=== PATIENT | female | born 1965 | race Caucasian/White ===

== ENCOUNTER → 2024-04-09 16:00 | Outpatient (REF) | payer OTHER, SELFPAY | LOC: HWWDC 16:00 | PROVIDERS: ATTENDING PHYSICIAN Physician Assistant Medical | DX: Z12.31 Encounter for screening mammogram for malignant neoplasm of breast (principal) | CPT/HCPCS: 77063; 77067 ==

== ENCOUNTER 2024-06-07 16:17 | Emergency (ER) | payer OTHER, SELFPAY ==
[2024-06-07 16:17] VITALS: BMI 30.8
[2024-06-07 16:19] VITALS: BP 145/107
[2024-06-07 16:40] LABS: % Basophils 0.9 % (0-2); % Immature Granulocytes 0.6 % (0-0.5); % Lymphocytes 21.4 % (20.5-51.1); % Monocytes 7.9 % (1.7-9.3); % Neutrophils 62.2 % (42.2-75.2); Absolute Basophils 0.1 10^3/uL (0-0.2); Absolute Eosinophils 0.6 10^3/uL (0-0.7); Absolute Immature Granulocytes 0.1 10^3/uL (0-0.05); Absolute Lymphocytes 1.7 10^3/uL (1.2-3.4); Absolute Monocytes 0.6 10^3/uL (0.1-0.6); Hemoglobin 11.6 g/dL (12.0-16.0); Mean Corp Hgb Conc. 34.1 g/dL (33.0-37.0); Mean Corpuscular Hgb 31.1 pg (27.0-31.0); Mean Corpuscular Volume 91.2 fL (81.0-99.0); Mean Platelet Volume 9.3 fL (7.4-10.4); Nucleated Red Blood Cells % 0 %; Platelet Count 419 10^3/uL (130-400); Red Blood Cell Count 3.73 10^6/uL (4.20-5.40); Red Cell Dist. Width 13.2 % (11.5-14.5)
[2024-06-07 16:41] LABS: Urine Albumin 1+ (Neg - Trace); Urine Bilirubin Negative (Negative); Urine Character Clear (Clear); Urine Color Red; Urine Glucose Negative (Negative); Urine Ketone Negative (Negative); Urine Leukocyte 2+ (Negative); Urine Nitrite Negative (Negative); Urine Occult Blood 4+ (Negative); Urine Urobilinogen Negative (Neg - 1+); Urine pH 6.5 (5.0-9.0)
[2024-06-07 16:56] LABS: ALT (SGPT) 65 U/L (0-35); AST (SGOT) 34 U/L (14-36); Albumin 4.5 g/dl (3.5-5.0); Alkaline Phosphatase 90 U/L (38-126); Blood Urea Nitrogen 12 mg/dl (7-17); Calcium 9.9 mg/dl (8.4-10.2); Carbon Dioxide 27 mmol/L (22-30); Chloride 101 mmol/L (98-107); Glucose 103 mg/dl (70-99); Sodium 139 mmol/L (135-145); Total Bilirubin 0.5 mg/dl (0.2-1.3); eGFR > 60.00
[2024-06-07 17:10] LABS: Urine Bacteria Few (Negative); Urine Red Blood Cell 30-40 /HPF (0-2)
--- NOTE | 2024-06-07 19:44 | ED.GENMED ---
History of Present Illness
General
Chief Complaint: Catheter/Tube Problem
Time Seen by Provider: 06/07/24 18:29
History of Present Illness
History of Present Illness:
58-year-old female with history of diverticulitis status post partial colectomy 1 week ago presenting for concern of hematuria. Patient reports that her surgery was complicated after the surgeon nicked her bladder, requiring a Rojas catheter. She
reports since the surgery, she has had some scant blood in the Rojas, however today noticed an increase amount of blood. It was initially bright red, however is now dark in color. She is supposed to have a cystoscopy tomorrow, however was canceled
and is rescheduled for Tuesday. She notes some lower abdominal discomfort as well as some back pain. She is not on any blood thinners. She denies any fever. Surgery was at [facility] in [place]. She denies chest pain or difficulty breathing or
additional acute medical complaints.
Past History
Past History
ED Past Medical History: None
Patient has exhibited threatening behavior?: No
PSI?: No
Phy Exam
Physical Exam
Physical Exam:
General: Well-appearing, no clinical signs of dehydration, nontoxic and in no acute distress
HEENT: protecting airway
Neck: appears supple
CV: Normal heart rate, regular rhythm, no evidence of cyanosis
Resp: No accessory muscle use, no increased work of breathing, lungs clear to auscultation bilaterally
Abd: Soft and non-distended, mild generalized tenderness to the lower abdomen without rebound or guarding. Surgical incisions are clean/dry/intact, healing appropriately without erythema or warmth. No active drainage.
Extremities: No deformities, no swelling, no erythema
Neuro: alert, no focal neurologic deficit
: deferred
Rectal: deferred
Psych: Normal affect
Skin: Intact
Course
Orders/Labs/Results
Orders:
Orders
06/07/24 16:28
CBC/With Diff [Complete Blood Count/With Diff] Urgent
CMP [Comprehensive Metabolic Panel] Urgent
Urinalysis Reflex To Culture Urgent
Date Specimen was Collected: 06/07/24
Time Specimen was Collected: 16:23
Urine Microscopic Reflex Cult Urgent
Urine Culture Urgent
KRYSTIN Source: U
Specimen Description:
Date Specimen was Collected: 06/07/24
Time Specimen was Collected: 16:23
06/07/24 19:26
CT Abd/pelvis W Iv Cont Urgent
Comment:
Reason For Exam: lower abdominal pain, indwelling rojas
06/07/24 22:07
Cefepime HCl [Maxipime] 2,000 mg IV NOW STA
Abnormal Lab Results
06/07/24
16:28
RBC 3.73 L 10^6/uL
(4.20-5.40)
Hgb 11.6 L g/dL
(12.0-16.0)
Hct 34.0 L %
(37.0-47.0)
MCH 31.1 H pg
(27.0-31.0)
Plt Count 419 H 10^3/uL
(130-400)
Abs Immat Gran (auto) 0.1 H 10^3/uL
(0-0.05)
Immature Gran % 0.6 H %
(0-0.5)
Eosinophils % 7.0 H %
(0-6)
Glucose 103 H mg/dl
(70-99)
ALT 65 H U/L
(0-35)
Ur Occult Blood Reflex 4+ A
(Negative)
Leukocyte Esterase Rfl 2+ A
(Negative)
Urine RBC 30-40 A /HPF
(0-2)
Urine WBC (Reflex) 11-15 A /HPF
(0-5)
Urine Bacteria (Reflex) Few A
(Negative)
Urine Albumin (Reflex) 1+ A
(Neg - Trace)
06/07/24 16:28
06/07/24 16:28
Vital Signs
Initial and Last Documented VS:
Initial Vital Signs
Temp Pulse Resp BP Pulse Ox
97.8 F 95 18 145/107 97
06/07/24 16:19 06/07/24 16:19 06/07/24 16:19 06/07/24 16:19 06/07/24 16:19
Last Documented Vital Signs
Temp Pulse Resp BP Pulse Ox
97.8 F 95 18 122/76 97
06/07/24 16:19 06/07/24 16:19 06/07/24 16:19 06/07/24 21:44 06/07/24 16:19
MDM/Problems Addressed
MDM/Problems Addressed:
58-year-old female with history of diverticulitis status post partial colectomy 1 week ago complicated by nicking of the bowel indwelling Rojas catheter presenting for hematuria. Vital signs on arrival are normal.
On exam, patient is well-appearing, nontoxic. Patient does have a leg bag in place. Urine is rust in color, no genesis hematuria. It is draining appropriately. She notes that she just emptied it, and bag is nearly full. Suspect UTI versus bladder
irritation, however she does have some generalized tenderness to the lower abdomen. Given recent surgical intervention, will obtain CT imaging. Laboratory analysis obtained, no leukocytosis. Urine does show some leukocytes as well as RBCs.
Hemoglobin within normal limits without concern for any significant bleeding.
22:00 -CT shows severe inflammatory changes adjacent to the anterior aspect of the bladder with small amount of adjacent fluid, no extraluminal gas although per urology, difficult to rule out component of extraperitoneal bladder rupture. In
discussion with urology, note that these are not unusual findings after bladder injury from surgery. Urology notes that if catheter is draining well and hematuria is resolving, can be discharged with outpatient follow-up for planned cystogram. On
reassessment, patient remains hemodynamically stable. Catheter continues to drain appropriately, continued improvement in hematuria, yellow/brown in color. There is some signs of infection to the urine, so will start on antibiotics in the setting
of potential cystitis component. Cefepime administered in the emergency department. Otherwise feel patient is stable for discharge with close interval follow-up with her urologist and cystogram as scheduled on Tuesday. Strict return precautions
were communicated to patient and patient verbalized understanding
*Critical Care Note
Total Time (30-74mins, 75-104mins- exclusive of procedures): Not Applicable
ED Attending Note
-
Portions of this chart may have been created with voice recognition software.� Occasional wrong word or��sound alike� substitutions may have occurred due to the inherent limitations of voice recognition software.
Discharge Plan
Departure
Prescriptions:
No Action
hydrocodone-acetaminophen 1 TABLET tablet
1 - 2 tab PO Q4HPRN PRN (Reason: moderate to severe pain) Qty: 15 0RF
ciprofloxacin HCl [Cipro] 500 mg tablet
500 mg PO BID Qty: 19 0RF
metronidazole 500 mg tablet
500 mg PO Q8H Qty: 29 0RF
Referrals:
NONE,* [Active] -
Discharge Date and Time
Print Language: LITHUANIAN
[2024-06-07 21:44] VITALS: BP 122/76
[2024-06-07] MEDS: MAXIPIME 2000 MG IV (22:15)
== END 2024-06-07 22:30 | disposition home or self-care (01) ==
LOC: EMR 16:17
PROVIDERS: Emergency Medicine; EMERGENCY PHYSICIAN Student in an Organized Health Care Education/Training Program; FAMILY PHYSICIAN Physician Assistant Medical
DX: R31.9 Hematuria, unspecified (principal); R10.30 Lower abdominal pain, unspecified; M54.9 Dorsalgia, unspecified; K57.92 Diverticulitis of intestine, part unspecified, without perforation or abscess without bleeding; Z98.890 Other specified postprocedural states; Z98.0 Intestinal bypass and anastomosis status; Z91.018 Allergy to other foods; Z91.048 Other nonmedicinal substance allergy status
CPT/HCPCS: 99284; 96374; 74177; 80053; 81003; 81015; 85025; 87077; 87086; 87186; Q9967

== ENCOUNTER → 2024-06-11 12:56 | Outpatient (REF) | payer OTHER, SELFPAY | LOC: RAD 12:56 | PROVIDERS: ATTENDING PHYSICIAN Physician Assistant; FAMILY PHYSICIAN Physician Assistant Medical | DX: S37.20XS Unspecified injury of bladder, sequela (principal) | CPT/HCPCS: 51600; 74430; Q9967 ==

== ENCOUNTER 2024-06-13 12:47 | Inpatient (IN) | payer OTHER, SELFPAY ==
[2024-06-13] VITALS (12 sets, daily range): BP systolic 113–160; BP diastolic 32–94; BMI 27.3; BMI 29.1
[2024-06-13 05:22] LABS: % Basophils 0.6 % (0-2); % Eosinophils 0.1 % (0-6); % Lymphocytes 3.7 % (20.5-51.1); % Monocytes 5.5 % (1.7-9.3); % Neutrophils 89.1 % (42.2-75.2); Absolute Basophils 0.1 10^3/uL (0-0.2); Absolute Immature Granulocytes 0.2 10^3/uL (0-0.05); Absolute Lymphocytes 0.6 10^3/uL (1.2-3.4); Absolute Monocytes 0.9 10^3/uL (0.1-0.6); Absolute Neutrophils 14.1 10^3/uL (1.4-6.5); Hematocrit 32.1 % (37.0-47.0); Hemoglobin 11.4 g/dL (12.0-16.0); Mean Corp Hgb Conc. 35.5 g/dL (33.0-37.0); Mean Corpuscular Volume 87.2 fL (81.0-99.0); Mean Platelet Volume 9.3 fL (7.4-10.4); Nucleated Red Blood Cells % 0 %; Platelet Count 374 10^3/uL (130-400); Red Blood Cell Count 3.68 10^6/uL (4.20-5.40); Red Cell Dist. Width 12.8 % (11.5-14.5); White Blood Cell Count 15.9 10^3/uL (4.8-10.8)
[2024-06-13 05:38] LABS: ALT (SGPT) 22 U/L (0-35); AST (SGOT) 20 U/L (14-36); Albumin 4.1 g/dl (3.5-5.0); Alkaline Phosphatase 85 U/L (38-126); Blood Urea Nitrogen 9 mg/dl (7-17); Calcium 9.7 mg/dl (8.4-10.2); Carbon Dioxide 21 mmol/L (22-30); Chloride 102 mmol/L (98-107); Glucose 142 mg/dl (70-99); Sodium 137 mmol/L (135-145); Total Bilirubin 0.8 mg/dl (0.2-1.3); Total Protein 6.7 g/dl (6.3-8.2); eGFR > 60.00
[2024-06-13 06:44] LABS: Urine Albumin 1+ (Neg - Trace); Urine Bilirubin Negative (Negative); Urine Character Clear (Clear); Urine Color Yellow; Urine Glucose Negative (Negative); Urine Ketone 2+ (Negative); Urine Leukocyte Negative (Negative); Urine Nitrite Negative (Negative); Urine Occult Blood Negative (Negative); Urine Urobilinogen Negative (Neg - 1+)
[2024-06-13] MEDS: TYLENOL 1000 MG PO (06:55)
[2024-06-13] MEDS: TORADOL 15 MG IV (06:56)
[2024-06-13] MEDS: ZOFRAN 4 MG IV (06:56)
[2024-06-13 06:57] LABS: Urine Bacteria Few (Negative)
[2024-06-13] MEDS: NSS 1000 IV ×2 (06:57→15:54)
[2024-06-13 07:40] LABS: COVID-19 Antigen Negative (Negative)
[2024-06-13 09:19] LABS: Procalcitonin 0.81 ng/ml (0.0-0.25)
[2024-06-13 09:47] LABS: Lactic Acid 0.7 mmol/L (0.7-2.0)
--- NOTE | 2024-06-13 10:45 | ED.GENMED ---
History of Present Illness
General
Chief Complaint: Generalized Pain
Source: patient and records
Exam Limitations: none
Time Seen by Provider: 06/13/24 06:33
Nursing documentation reviewed up to this point in time: agreed with
History of Present Illness
History of Present Illness:
Patient is a 58-year-old female who feels generally bad. Patient states it feels like her skin and had her on fire. Patient is nauseous with vomiting but no diarrhea or constipation. Patient has lower abdominal tenderness. Patient had a CT scan
6 days ago which showed inflammation around the bladder but no organized collection of fluid. Patient has fever and chills. Patient has diminished appetite. Patient has nasal congestion without sore throat or cough. Patient had a colon resection
for diverticulitis and during the surgery they nicked the bladder. Patient subsequently ended up with a Vazquez catheter which was removed yesterday. Patient was seen here 6 days ago and placed on Cipro because of UTI which turned out to be
Pseudomonas which was sensitive to Cipro. However patient for the past 24 hours has developed the above symptoms. This occurred generally prior to having the Vazquez removed.
Past History
Past History
ED Past Medical History: HTN and Other (Diverticulitis)
ED Past Surgical History: Bowel resection
Patient has exhibited threatening behavior?: No
PSI?: No
Social History
Tobacco: Former smoker
Review of Systems
Review of Systems
All Other Systems: ROS reviewed and negative except as documented in HPI and ROS
Constitutional: Reports fever, fatigue and chills
EENT: Reports runny nose; Denies sore throat
Respiratory: Denies cough or trouble breathing
Cardiac: Reports no symptoms
ABD/GI: Reports abdominal pain
: Reports bleeding; Denies dysuria, flank pain or discharge
Musculoskeletal: Denies back pain
Skin: Reports no symptoms
Neurological: Reports no symptoms
Hematologic/Lymphatic: Reports no symptoms
Psychiatric: Reports no symptoms
Phy Exam
Physical Exam
Physical Exam:
Physical Exam
General: moderate distress, alert and appropriate, well nourished, dry mucous membranes
HENT: Normocephalic, supple with no lymphadenopathy, no thyromegaly
Eyes: Clear sclera, conjuctiva without injection
Heart: Regular rhythm and rate. No S3, S4. No murmur. No NVD
Lungs: No respiratory distress, no stridor, lung sounds clear and equal bilaterally
Abdomen: Soft, diffuse mild to moderate lower abdominal tenderness without guarding or rebound, no organomegaly, no CVA tenderness, BS good
Neuro: Alert and oriented x 3, CN II - XII intact, no motor focality
Skin: no rash
Psychiatric: well kept. interactive and cooperative
Extremities: No edema, cyanosis, tenderness, Good and equal peripheral pulses.
Course
Orders/Labs/Results
Orders:
Orders
06/13/24 05:13
CMP [Comprehensive Metabolic Panel] Urgent
Complete Blood Count/With Diff Urgent
06/13/24 06:24
Urinalysis Reflex To Culture Urgent
Date Specimen was Collected: 06/13/24
Time Specimen was Collected: 06:22
Urine Microscopic Reflex Cult Urgent
06/13/24 06:45
0.9% Sodium Chloride 1000 ml [Nss] 1,000 ml IV BOLUS
Acetaminophen [Tylenol] 1,000 mg PO NOW STA
Ketorolac [Toradol] 15 mg IV NOW STA
Ondansetron Injectable [Zofran] 4 mg IV NOW STA
06/13/24 07:14
COVID-19 Antigen Urgent
Source: Nasal Swab
06/13/24 08:42
Lactic Acid Q4H
Comment: CANCEL 2nd LACTIC ACID IF 1st LACTIC ACID IS LESS THAN 2
Procalcitonin Urgent
PCT Algorithmm Indication: Sepsis
Blood Culture Urgent
KRYSTIN Source: Blood/Venous
Specimen Description:
06/13/24 08:50
Blood Culture Routine
KRYSTIN Source: Blood/Venous
Specimen Description:
06/13/24 12:30
Lactic Acid Q4H
Comment: CANCEL 2nd LACTIC ACID IF 1st LACTIC ACID IS LESS THAN 2
Abnormal Lab Results
06/13/24 06/13/24 06/13/24
05:13 06:24 08:42
WBC 15.9 H 10^3/uL
(4.8-10.8)
RBC 3.68 L 10^6/uL
(4.20-5.40)
Hgb 11.4 L g/dL
(12.0-16.0)
Hct 32.1 L %
(37.0-47.0)
Abs Immat Gran (auto) 0.2 H 10^3/uL
(0-0.05)
Absolute Neuts (auto) 14.1 H 10^3/uL
(1.4-6.5)
Absolute Lymphs (auto) 0.6 L 10^3/uL
(1.2-3.4)
Absolute Monos (auto) 0.9 H 10^3/uL
(0.1-0.6)
Immature Gran % 1.0 H %
(0-0.5)
Neutrophils % 89.1 H %
(42.2-75.2)
Lymphocytes % 3.7 L %
(20.5-51.1)
Carbon Dioxide 21 L mmol/L
(22-30)
Glucose 142 H mg/dl
(70-99)
Procalcitonin 0.81 H ng/ml
(0.0-0.25)
Urine Ketones 2+ A
(Negative)
Urine RBC 3-6 A /HPF
(0-2)
Urine Bacteria (Reflex) Few A
(Negative)
Urine Albumin (Reflex) 1+ A
(Neg - Trace)
06/13/24 05:13
06/13/24 05:13
Vital Signs
Initial and Last Documented VS:
Initial Vital Signs
BP
155/89
06/13/24 04:51
Last Documented Vital Signs
Temp Pulse Resp BP Pulse Ox
100.8 F H 85 16 160/32 98
06/13/24 04:57 06/13/24 09:02 06/13/24 09:59 06/13/24 09:02 06/13/24 09:59
*Radiology
Radiology exam reviewed: other (Reviewed the CT from 6 days ago)
*Pulse Oximetry
Patient hypoxic: no
*EKG
Interpreted by ED Provider?: NA
*Plastic Dolls Mold Filler Interpretation
Rate: normal
Interpretation: normal
Heart Rate: 90
Rhythm: sinus
*Critical Care Note
Total Time (30-74mins, 75-104mins- exclusive of procedures): Not Applicable
Update Note
Update Note:
Patient urine looks good. Patient is tender throughout the lower abdomen. CT scan showed large amount inflammation about the bladder. Patient be started on antibiotics. Fortunately patient's lactate is normal but the procalcitonin is elevated.
ED Attending Note
-
Portions of this chart may have been created with voice recognition software.� Occasional wrong word or��sound alike� substitutions may have occurred due to the inherent limitations of voice recognition software.
Discharge Plan
Departure
Patient Disposition: Admit
Date of Disposition: 06/13/24
Time of Disposition: 10:56
Admit to: Telemetry
Admit to doctor: Hospitalist
Presentation/result/management discussed w/ accepting MD/DO: Hospitalist
Patient with high blood pressure during this ER visit?: Yes
Condition: Serious
Covid-19: Negative COVID-19
Discharge Problem:
Fever, Sepsis
Prescriptions:
No Action
cephalexin 500 mg capsule
500 mg PO Q12H 10 Days Qty: 20 0RF
lisinopril 10 mg tablet
10 mg PO DAILY
magnesium oxide 500 mg magnesium Tablet
500 mg PO DAILY
duloxetine 30 mg capsule,delayed release(DR/EC)
30 mg PO DAILY
cholecalciferol (vitamin D3) 50 mcg (2,000 unit) Tablet
50 mcg PO DAILY
Fiber Gummies 2 gram Tablet,Chewable
2 g PO DAILY
Collagen Skin Renewal 30-833.3 mg Tablet
1 tab PO DAILY
acetaminophen [Tylenol] 325 mg Tablet
650 mg PO Q6HPRN PRN (Reason: mild pain)
Referrals:
Sheree Thomas PA-C [Family Provider] -
Interventions
Interventions:
*Risk Screen - Suicide Last Done: 06/13/24 05:05
*General Assessment Last Done: 06/13/24 05:01
*Neglect/Abuse Screening Last Done: 06/13/24 05:02
ED- Fall Risk Assessment Last Done: 06/13/24 05:05
*ED COVID-19 Vaccine History Last Done: 06/13/24 05:04
Discharge Date and Time
Print Language: JAPANESE
[2024-06-13] MEDS: ZOSYN 100 IV (11:03)
[2024-06-13] MEDS: VANCOCIN 540 MG IV (11:51)
--- NOTE | 2024-06-13 12:35 | HPS.HSE ---
Family Physician
-
Family Physician: Sheree Thomas
Chief Complaint
-
Fever
History of Present Illness
Patient is 58 years old female with history of recent complicated diverticular episode status post colectomy and a bladder complication and she had a Vazquez catheter in place, hypertension, depression, came into the hospital with abdominal discomfort
nausea vomiting. Patient had some symptoms in the last few days and was diagnosed with possible UTI and she was sent on ciprofloxacin. Patient went to [facility] yesterday and had her Vazquez catheter taken out. Patient had persistent symptoms of
nausea vomiting abdominal discomfort in the lower abdomen associated with fever and chills. She has dysuria urgency and frequency and urinary incontinence. Fever Tmax 102.3 Fahrenheit, tachycardia in the 100s, tachypneic, leukocytosis with WBC
close to 16,000 and neutrophils 89%, lactate 0.7. She does have a outpatient urine culture from 06/07 growing Pseudomonas aeruginosa. She was referred to hospitalist for further evaluation.
Medical History
Past Medical History
Past Medical History: Reports Other (Diverticulitis status post colectomy, hypertension, depression, urinary retention and surgical damage with Vazquez catheter in place just recently removed.)
Past Surgical History: Reports Other (Colectomy.)
Social History
Tobacco: Former Smoker
Alcohol: Daily (She has not drank any alcohol for over 2 weeks and no signs of withdrawal.)
Drug: None
Family History
Family History: Not pertinent
Allergies / Home Medications
Allergies reflects when Allergies were last updated in [facility].
Home Medications with original date entered in [facility]
Allergy/Medication List:
Allergies
Allergy/AdvReac Type Severity Reaction Status Date / Time
apple Allergy Swelling, Verified 06/07/24 16:23
Itching
Environmental Allergy sneezing, Uncoded 06/07/24 16:23
itching
Home Medications
ascorbic acid 30 mg-collagen, hydrolyzed 833.3 mg tablet (Collagen Skin Renewal) 1 tab PO DAILY Supplement 06/07/24
cholecalciferol (vitamin D3) 50 mcg (2,000 unit) tablet 50 mcg PO DAILY Supplement 06/07/24
duloxetine 30 mg capsule,delayed release 30 mg PO DAILY Mental Health 06/07/24
inulin 2 gram chewable tablet (Fiber Gummies) 2 g PO DAILY Gastrointestinal Issue 06/07/24
lisinopril 10 mg tablet 10 mg PO DAILY Blood Pressure 06/07/24
magnesium oxide 500 mg PO DAILY Supplement 06/07/24
acetaminophen 325 mg tablet (Tylenol) 650 mg PO Q6HPRN PRN mild pain 06/13/24
cephalexin 500 mg capsule 500 mg PO Q12H Infection 06/13/24
Review of Systems
-
A 12 point ROS was completed and negative except as noted: Yes
Physical Exam
Vital Signs
Vital Signs
Temp Pulse Resp BP Pulse Ox
98.7 F 92 20 122/72 98
06/13/24 11:56 06/13/24 11:08 06/13/24 11:08 06/13/24 11:08 06/13/24 09:59
Physical exam:
General: Acutely ill. Mild toxic appearance.
HEENT: Normocephalic, Atraumatic and Dry Mucous Membranes
Respiratory: Clear to Auscultation; Negative Wheezes, Rales or Rhonchi
Cardiac: Regular Rhythm tachycardic and S1/S2
GI: Soft, Tender and Nondistended
Musculoskeletal: No Clubbing, No Cyanosis and No Edema
Neuro: Awake, Alert and Oriented
Psych: Calm
Physical Exam
General: Other
Laboratory Results
-
06/13/24 05:13
06/13/24 05:13
Laboratory Results
Lactic Acid 0.7 mmol/L (0.7-2.0) 06/13/24 08:42
Total Bilirubin 0.8 mg/dl (0.2-1.3) 06/13/24 05:13
AST 20 U/L (14-36) 06/13/24 05:13
ALT 22 U/L (0-35) 06/13/24 05:13
Alkaline Phosphatase 85 U/L (38-126) 06/13/24 05:13
Data Reviewed
-
Lab Data: Labs Reviewed by me
Impression/Plan
-
IMPRESSION:
Patient is 58 years old female came into the hospital with fever, leukocytosis, and sepsis picture likely related to catheter associated urinary tract infection. Patient at risk for increased morbidity mortality due to active infection and
comorbidities therefore she will need to be treated at hospital and monitor accordingly.
PLAN:
Sepsis due to CAUTI:
Patient with fever, temperature 102.3 �F, tachycardic heart rates in 100s, tachypnea respiratory 17, leukocytosis WBC 15.9 and source urine
Given urine culture recent Pseudomonas we will continue targeting this organism.
IV cefepime
Repeat urine culture but could not be helpful since partially treated
Follow-up rest of cultures
IV fluid
Bladder scan protocol for retention
Seen and reviewed recent CT scan of the abdomen on 06/07 and cystogram on 06/11-no need to repeat unless clinical status worsens
Urology consult-Deland texted urology today.
Hypertension:
Resume antihypertensives tomorrow
Monitor blood pressure adjust medications accordingly
Depression:
Continue antidepressant duloxetine
DVT prophylaxis-Lovenox
CODE STATUS-full code
Time spent 75 minutes
[2024-06-13] MEDS: TYLENOL 650 MG PO ×2 (14:26→18:15)
[2024-06-13] MEDS: CYMBALTA DELAYED RELEASE 30 MG PO (15:54)
[2024-06-13] MEDS: MAGNESIUM OXIDE 500 MG PO (15:54)
[2024-06-13] MEDS: LOVENOX 40 MG SC (18:15)
[2024-06-13] MEDS: MAXIPIME 1000 MG IV (18:15)
[2024-06-13] MEDS: STERILE WATER FOR INJECTION 10 ML IV (18:16)
[2024-06-13] MEDS: TORADOL 10 MG IV (20:39)
[2024-06-13] MEDS: NSS IV (22:38)
[2024-06-14] MEDS: NSS 1000 IV ×3 (02:23→22:17)
[2024-06-14] MEDS: ZOFRAN 4 MG IV ×2 (02:24→17:12)
[2024-06-14] MEDS: TORADOL 10 MG IV ×2 (03:02→19:35)
[2024-06-14 03:39] LABS: Urine Albumin Trace (Neg - Trace); Urine Bilirubin Negative (Negative); Urine Character Slightly Cloudy (Clear); Urine Color Yellow; Urine Glucose Negative (Negative); Urine Ketone Trace (Negative); Urine Leukocyte Negative (Negative); Urine Nitrite Negative (Negative); Urine Occult Blood Negative (Negative); Urine Specific Gravity 1.015 (<1.030); Urine Urobilinogen Negative (Neg - 1+)
[2024-06-14] MEDS: MAXIPIME 1000 MG IV ×2 (05:39→17:06)
[2024-06-14] MEDS: STERILE WATER FOR INJECTION 10 ML IV ×2 (05:40→17:06)
[2024-06-14 07:21] LABS: Blood Urea Nitrogen 11 mg/dl (7-17); Calcium 8.6 mg/dl (8.4-10.2); Carbon Dioxide 20 mmol/L (22-30); Chloride 107 mmol/L (98-107); Estimated Creatinine Clearance 72 ml/min; Glucose 109 mg/dl (70-99); Sodium 138 mmol/L (135-145); eGFR > 60.00
[2024-06-14 07:25] VITALS: BP 118/67
[2024-06-14 07:37] LABS: % Basophils 0.5 % (0-2); % Eosinophils 4.8 % (0-6); % Immature Granulocytes 1.1 % (0-0.5); % Lymphocytes 6.3 % (20.5-51.1); % Monocytes 6.3 % (1.7-9.3); Absolute Eosinophils 0.3 10^3/uL (0-0.7); Absolute Immature Granulocytes 0.1 10^3/uL (0-0.05); Absolute Lymphocytes 0.4 10^3/uL (1.2-3.4); Absolute Monocytes 0.4 10^3/uL (0.1-0.6); Absolute Neutrophils 5.3 10^3/uL (1.4-6.5); Hemoglobin 10.4 g/dL (12.0-16.0); Mean Corp Hgb Conc. 34.7 g/dL (33.0-37.0); Mean Corpuscular Hgb 32.1 pg (27.0-31.0); Mean Corpuscular Volume 92.6 fL (81.0-99.0); Nucleated Red Blood Cells % 0 %; Platelet Count 267 10^3/uL (130-400); Red Blood Cell Count 3.24 10^6/uL (4.20-5.40); Red Cell Dist. Width 12.8 % (11.5-14.5); White Blood Cell Count 6.5 10^3/uL (4.8-10.8)
--- NOTE | 2024-06-14 08:41 | W.PN.HOSP.TC ---
Today's Communication/Plan
-
Continue IV antibiotics. IV fluids.
Assessment / Plan
Assessment / Plan
Physical exam:
General: Well Developed, Well Nourished and No Apparent Distress
HEENT: Normocephalic, Atraumatic and Moist Mucous Membranes
Respiratory: Clear to Auscultation; Negative Wheezes, Rales or Rhonchi
Cardiac: Regular Rhythm and S1/S2
GI: Soft, Nontender and Nondistended
Musculoskeletal: No Clubbing, No Cyanosis and No Edema
Neuro: Awake, Alert and Oriented
Psych: Calm
A/P:
Sepsis due to CAUTI:
Patient with fever, temperature 102.3 �F, tachycardic heart rates in 100s, tachypnea respiratory 17, leukocytosis WBC 15.9 and source urine
Given urine culture recent Pseudomonas we will continue targeting this organism.
IV cefepime
Repeat urine culture but could not be helpful since partially treated
Follow-up rest of cultures
IV fluid but decrease rate.
Bladder scan protocol for retention
Seen and reviewed recent CT scan of the abdomen on 06/07 and cystogram on 06/11-no need to repeat unless clinical status worsens
Urology consulted
WBC 15.9--> 6.5 today
PT eval
Hypertension:
Resume antihypertensives today
Monitor blood pressure adjust medications accordingly
Anemia:
Hemoglobin 10.4 today
No signs of bleeding but mild drift overall due to dilutional effect
Depression:
Continue antidepressant duloxetine
DVT prophylaxis-Lovenox
CODE STATUS-full code
Anticipated Discharge: > 48 hours
Subjective/Interval History
-
Date of Service: June 14, 2024
Patient still has urinary symptoms and generalized malaise today. Fever is coming down today. Decreased appetite.
Objective Data
-
Labs:
Laboratory Results
06/14/24
05:40
WBC 6.5
Hgb 10.4 L
Hct 30.0 L
Plt Count 267 D
Sodium 138
Potassium 4.0
Chloride 107
Carbon Dioxide 20 L
BUN 11
Creatinine 0.8
Glucose 109 H
Calcium 8.6
Vital Signs:
Vital Signs
Temp Pulse Resp BP Pulse Ox
98.3 F 74 16 118/67 99
06/14/24 07:25 06/14/24 07:25 06/14/24 07:25 06/14/24 07:25 06/14/24 07:25
I&O
06/13/24 06/14/24 06/15/24
06:59 06:59 06:59
Intake Total 1620 / 1620
Balance 1620 / 1620
[2024-06-14] MEDS: MAGNESIUM OXIDE 500 MG PO (09:16)
[2024-06-14] MEDS: CYMBALTA DELAYED RELEASE 30 MG PO (09:16)
[2024-06-14] MEDS: ZESTRIL 10 MG PO (09:16)
--- NOTE | 2024-06-14 12:17 | CM ---
Pt admitted for Sepsis due to CAUTI, HTN, anemia, h/o depression
Met with pt at bedside
Pt reports she lives alone in an apartment, no steps to enter
Independent, retired, drives
DME - none
SNF/HH - no past hx
Has ride at discharge
PCP - Sheree AKERS - [facility]
Pharm - [facility]
Plan - anticipate home no needs
[2024-06-14 15:22] VITALS: BP 126/63
[2024-06-14] MEDS: LOVENOX 40 MG SC (17:06)
--- NOTE | 2024-06-14 17:20 | W.PN.URO.CBU ---
Today's Communication / Plan
-
Patient requires no urologic intervention at this time
Her voiding dysfunction is expected to continue to improve
Right-sided reflux will likely resolve
Assessment / Plan
-
2 weeks s/p intraoperative bladder injury and cystorrhaphy
Pseudomonas UTI
Urine urgency and frequency: improving
Right vesicoureteral reflux: likely secondary to post-surgical changes or UTI
Diagnosis
-
Date of Service: June 14, 2024
-
Patient Diagnosis:
Roughly 2 weeks s/p laparoscopic partial colectomy at [facility] complicated by bladder injury requiring intraoperative repair
Patient had her cystogram at this hospital 06/11/24 (images personally reviewed) demonstrating grade 4 right sided vesicoureteral reflux and the absence of urine extravasation from the bladder
She had her Vazquez catheter removed 06/12/24 at her urologist's office
She has a hidalgo-sensitive pseudomonas UTI diagnosed here last week currently being treated
---
She presented here yesterday with worsening abdominal pain and fever
She has slowly improving urine urgency and urge incontinence
No dysuria
No gross hematuria
No right CVAT
Subjective
-
Urine urgency and urge incontinence
Objective
-
Vital Signs
Temp Pulse Resp BP Pulse Ox
98.3 F 81 16 126/63 95
06/14/24 15:22 06/14/24 15:22 06/14/24 15:22 06/14/24 15:22 06/14/24 15:22
Intake and Output
06/13/24 06/14/24 06/15/24
06:59 06:59 06:59
Intake Total 1620 / 1620
Balance 1620 / 1620
Intake:
Oral fluids 1620 / 1620
Other:
Number of approximated SMALL 7
amounts of urine
Number of approximated LARGE 2
amounts of urine
Laboratory Results
06/14/24 05:40
06/14/24 05:40
06/11/24 cystogram personally reviewed
Review of Systems
-
Constitutional: Fatigue
Respiratory: No Symptoms
Cardiac: No Symptoms
Abdomen/GI: Abdominal Pain
: Frequency, Incontinence and Urgency
Neurological: No Symptoms
Physical Exam
-
General - no acute distress
Abdomen - soft, non-tender, no CVAT
Counseling
-
Will re-evaluate if clinical condition warrants
Patient is encouraged to follow up with her treating urologist as scheduled
[2024-06-14] MEDS: COMPAZINE 10 MG IV (19:58)
[2024-06-14 23:06] VITALS: BP 119/72
[2024-06-15] MEDS: MAXIPIME 1000 MG IV ×2 (05:20→17:08)
[2024-06-15] MEDS: STERILE WATER FOR INJECTION 10 ML IV ×2 (05:21→17:08)
[2024-06-15 07:20] VITALS: BP 149/93
[2024-06-15] MEDS: NSS 1000 IV (08:01)
[2024-06-15] MEDS: ZESTRIL 10 MG PO (08:02)
[2024-06-15] MEDS: CYMBALTA DELAYED RELEASE 30 MG PO (08:02)
[2024-06-15] MEDS: MAGNESIUM OXIDE 500 MG PO (08:02)
--- NOTE | 2024-06-15 09:32 | W.PN.HOSP.TC ---
Today's Communication/Plan
-
IV antibiotics. CT scan of the abdomen and pelvis
Assessment / Plan
Assessment / Plan
Physical exam:
General: Well Developed, Well Nourished and No Apparent Distress
HEENT: Normocephalic, Atraumatic and Moist Mucous Membranes
Respiratory: Clear to Auscultation; Negative Wheezes, Rales or Rhonchi
Cardiac: Regular Rhythm and S1/S2
GI: Soft, mild tender and Nondistended
Musculoskeletal: No Clubbing, No Cyanosis and No Edema
Neuro: Awake, Alert and Oriented
Psych: Calm
A/P:
Sepsis due to CAUTI:
Improving
Despite her improvement, patient is very concerned about colonic issues postop so she was a CT scan of the abdomen. Not likely did not find anything major but is not unreasonable given her recent surgery.
Plan for CT scan of abdomen pelvis today
Continue current antibiotics, IV cefepime
Prior to today:
Patient with fever, temperature 102.3 �F, tachycardic heart rates in 100s, tachypnea respiratory 17, leukocytosis WBC 15.9 and source urine
Given urine culture recent Pseudomonas we will continue targeting this organism.
IV cefepime
Repeat urine culture but could not be helpful since partially treated
Follow-up rest of cultures
IV fluid but decrease rate.
Bladder scan protocol for retention
Seen and reviewed recent CT scan of the abdomen on 06/07 and cystogram on 06/11-no need to repeat unless clinical status worsens
Urology consulted
WBC 15.9--> 6.5 today
PT eval
Hypertension:
Continue antihypertensives
Monitor blood pressure adjust medications accordingly
Anemia:
Hemoglobin 10.4 last time checked
No signs of bleeding but mild drift overall due to dilutional effect
Will repeat in a.m.
Depression:
Continue antidepressant duloxetine
DVT prophylaxis-Lovenox
CODE STATUS-full code
Anticipated Discharge: 24 - 48 hours
Subjective/Interval History
-
Date of Service: June 15, 2024
Patient feels better overall today. No nausea or vomiting. Abdominal discomfort improving. Afebrile
Objective Data
-
Vital Signs:
Vital Signs
Temp Pulse Resp BP Pulse Ox
97.9 F 78 17 148/93 98
06/15/24 07:20 06/15/24 08:02 06/15/24 07:20 06/15/24 08:02 06/15/24 08:10
I&O
06/14/24 06/15/24 06/16/24
06:59 06:59 06:59
Intake Total 1620 / 1620 1140 / 1140
Balance 1620 / 1620 1140 / 1140
--- NOTE | 2024-06-15 13:04 | W.PN.URO.CBU ---
Today's Communication / Plan
-
please do bladder scan pos t void call urology if greater than 101cc
Assessment / Plan
-
2 weeks s/p intraoperative bladder injury and cystorrhaphy
Pseudomonas UTI
Urine urgency and frequency: improving
Right vesicoureteral reflux: likely secondary to post-surgical changes or UTI
Diagnosis
-
Date of Service: June 15, 2024
-
Patient Diagnosis:
Post Op Day:
Patient Diagnosis:
Roughly 2 weeks s/p laparoscopic partial colectomy at [facility] complicated by bladder injury requiring intraoperative repair
Patient had her cystogram at this hospital 06/11/24 (images personally reviewed) demonstrating grade 4 right sided vesicoureteral reflux and the absence of urine extravasation from the bladder
She had her Vazquez catheter removed 06/12/24 at her urologist's office
She has a hidalgo-sensitive pseudomonas UTI diagnosed here last week currently being treated
---
She presented here yesterday with worsening abdominal pain and fever
She has slowly improving urine urgency and urge incontinence
No dysuria
No gross hematuria
No right CVAT
Subjective
-
sill frequency no fevr chllls feels like emptying
Objective
-
Vital Signs
Temp Pulse Resp BP Pulse Ox
97.9 F 78 17 148/93 98
06/15/24 07:20 06/15/24 08:02 06/15/24 07:20 06/15/24 08:02 06/15/24 08:10
Intake and Output
06/14/24 06/15/24 06/16/24
06:59 06:59 06:59
Intake Total 1620 / 1620 1140 / 1140
Balance 1620 / 1620 1140 / 1140
Intake:
Oral fluids 1620 / 1620 1140 / 1140
Other:
Number of approximated SMALL 7
amounts of urine
Number of approximated LARGE 2 3
amounts of urine
Laboratory Results
06/14/24 05:40
06/14/24 05:40
Review of Systems
-
: Frequency and Urgency
Physical Exam
-
General - well developed, well nourished, no acute distress
Chest - clear bilaterally
Abdomen - soft, non-tender, positive bowel sounds, no CVAT, no incisional pain or distention
Genitalia - normal
Rectal - normal
Skin - warm & dry with no rash
Neuro - AOx3, no motor deficits
Extremities - no clubbing, no cyanosis, no edema
Incision - clean, dry
Dressing - clean, dry, intact
Care Review
Data Reviewed
Discussed with: Nursing
[2024-06-15 15:14] VITALS: BP 141/81
[2024-06-15] MEDS: OMNIPAQUE 50 ML PO (15:15)
--- NOTE | 2024-06-15 15:31 | CM ---
Case management following for discharge planning
Chart reviewed. Met with pt
Remains on antibiotics
Urology following
CM remains available for d/c needs
Plan - anticipate home no needs
[2024-06-15] MEDS: LOVENOX 40 MG SC (17:08)
[2024-06-15 22:07] LABS: Glucose - Point of Care 121 mg/dl (70-99)
[2024-06-15] MEDS: TUMS 1 TABLET PO (22:33)
[2024-06-15] MEDS: FLAGYL 500 MG 100 IV (22:34)
[2024-06-15 23:15] VITALS: BP 146/81
[2024-06-16] MEDS: STERILE WATER FOR INJECTION 10 ML IV ×2 (06:30→17:27)
[2024-06-16] MEDS: FLAGYL 500 MG 100 IV ×3 (06:30→21:29)
[2024-06-16] MEDS: MAXIPIME 1000 MG IV ×2 (06:30→17:27)
[2024-06-16] MEDS: CYMBALTA DELAYED RELEASE 30 MG PO (07:48)
[2024-06-16] MEDS: MAGNESIUM OXIDE 500 MG PO (07:49)
[2024-06-16 08:00] VITALS: BP 138/78
[2024-06-16 08:05] LABS: % Basophils 1.1 % (0-2); % Immature Granulocytes 0.7 % (0-0.5); % Lymphocytes 23.6 % (20.5-51.1); % Monocytes 11.1 % (1.7-9.3); % Neutrophils 55.5 % (42.2-75.2); Absolute Basophils 0.1 10^3/uL (0-0.2); Absolute Eosinophils 0.4 10^3/uL (0-0.7); Absolute Lymphocytes 1.1 10^3/uL (1.2-3.4); Absolute Monocytes 0.5 10^3/uL (0.1-0.6); Absolute Neutrophils 2.5 10^3/uL (1.4-6.5); Hematocrit 28.4 % (37.0-47.0); Hemoglobin 9.5 g/dL (12.0-16.0); Mean Corp Hgb Conc. 33.5 g/dL (33.0-37.0); Mean Corpuscular Hgb 30.3 pg (27.0-31.0); Mean Corpuscular Volume 90.4 fL (81.0-99.0); Mean Platelet Volume 10.1 fL (7.4-10.4); Nucleated Red Blood Cells % 0 %; Platelet Count 314 10^3/uL (130-400); Red Blood Cell Count 3.14 10^6/uL (4.20-5.40); Red Cell Dist. Width 12.7 % (11.5-14.5); White Blood Cell Count 4.5 10^3/uL (4.8-10.8)
[2024-06-16] MEDS: ZESTRIL 10 MG PO (08:18)
[2024-06-16 08:32] LABS: Blood Urea Nitrogen 6 mg/dl (7-17); Calcium 9.1 mg/dl (8.4-10.2); Carbon Dioxide 26 mmol/L (22-30); Chloride 108 mmol/L (98-107); Estimated Creatinine Clearance 72 ml/min; Glucose 106 mg/dl (70-99); Potassium 4.1 mmol/L (3.5-5.1); Sodium 144 mmol/L (135-145); eGFR > 60.00
--- NOTE | 2024-06-16 10:18 | W.PN.HOSP.TC ---
Today's Communication/Plan
-
Stool cultures and C. difficile. IV fluids. Antibiotic. GI consult
Assessment / Plan
Assessment / Plan
Physical exam:
General: Well Developed, Well Nourished and No Apparent Distress
HEENT: Normocephalic, Atraumatic and Dry Mucous Membranes
Respiratory: Clear to Auscultation; Negative Wheezes, Rales or Rhonchi
Cardiac: Regular Rhythm and S1/S2
GI: Soft, mild tender and Nondistended
Musculoskeletal: No Clubbing, No Cyanosis and No Edema
Neuro: Awake, Alert and Oriented
Psych: Calm
A/P:
Sepsis due to CAUTI:
Improving
Continue current antibiotics, IV cefepime and added Flagyl due to concerns of proctitis
Discussed with urology at bedside today
Prior to today:
Despite her improvement, patient is very concerned about colonic issues postop so she was a CT scan of the abdomen. Not likely did not find anything major but is not unreasonable given her recent surgery.
Repeated CT of the abdomen pelvis and reviewed results from yesterday-unremarkable except for some possible proctitis so we will request GI for evaluation.
Patient with fever, temperature 102.3 �F, tachycardic heart rates in 100s, tachypnea respiratory 17, leukocytosis WBC 15.9 and source urine
Given urine culture recent Pseudomonas we will continue targeting this organism.
IV cefepime
Repeat urine culture but could not be helpful since partially treated
Follow-up rest of cultures
IV fluid but decrease rate.
Bladder scan protocol for retention
Seen and reviewed recent CT scan of the abdomen on 06/07 and cystogram on 06/11. Repeated CT scan of the abdomen and pelvis by patient request.
Urology consulted
WBC 15.9--> 6.5 today
PT eval
Proctitis and acute diarrhea:
Check C. difficile and stool cultures
Gentle IV fluid
CT scan of the abdomen reviewed
GI consult
Hypertension:
Continue antihypertensives
Monitor blood pressure adjust medications accordingly
Anemia:
Hemoglobin 10.4 last time checked
No signs of bleeding but mild drift overall due to dilutional effect
Will repeat in a.m.
Depression:
Continue antidepressant duloxetine
DVT prophylaxis-Lovenox
CODE STATUS-full code
Anticipated Discharge: 24 - 48 hours
Subjective/Interval History
-
Date of Service: June 16, 2024
Patient is having diarrhea today along with some lower abdominal discomfort. Afebrile
Objective Data
-
Labs:
Laboratory Results
06/16/24
06:30
WBC 4.5 L
Hgb 9.5 L
Hct 28.4 L
Plt Count 314
Sodium 144
Potassium 4.1
Chloride 108 H
Carbon Dioxide 26
BUN 6 L
Creatinine 0.8
Glucose 106 H
Calcium 9.1
Vital Signs:
Vital Signs
Temp Pulse Resp BP Pulse Ox
98.3 F 71 18 138/78 93
06/16/24 08:00 06/16/24 08:00 06/16/24 08:00 06/16/24 08:18 06/16/24 08:00
I&O
06/15/24 06/16/24 06/17/24
06:59 06:59 06:59
Intake Total 1140 / 1140 1060 / 1060
Balance 1140 / 1140 1060 / 1060
[2024-06-16] MEDS: ZOFRAN 4 MG IV ×2 (10:24→17:32)
[2024-06-16 10:27] VITALS: BP 155/94
--- NOTE | 2024-06-16 11:15 | W.PN.URO.CBU ---
Today's Communication / Plan
-
IV Cefepime w/ conversion to PO course as indicated
CTAP w/ IV and PO contrast + cystogram indicate NO post-op urine leak (reviewed)
Urology will sign off - please call with questions
Assessment / Plan
-
2 weeks s/p intraoperative bladder injury and cystorrhaphy
Pseudomonas UTI
Urine urgency and frequency: improving
Right vesicoureteral reflux: likely secondary to post-surgical changes from cystorrhaphy and/or UTI
Diagnosis
-
Date of Service: June 16, 2024
-
Patient Diagnosis:
~2 weeks s/p laparoscopic partial colectomy at [facility] complicated by bladder injury requiring intraoperative repair
Patient had her cystogram at this hospital 06/11/24 (images personally reviewed) demonstrating grade 4 right sided vesicoureteral reflux and the absence of urine extravasation from the bladder
She had her Vazquez catheter removed 06/12/24 at her urologist's office
She has a hidalgo-sensitive pseudomonas UTI diagnosed here last week currently being treated
====
She presented here yesterday with worsening abdominal pain and fever
She has slowly improving urine urgency and urge incontinence
No dysuria
No gross hematuria
No right CVAT
Subjective
-
Voiding w/o difficulty.
Denies hematuria or dysuria.
Objective
-
Vital Signs
Temp Pulse Resp BP Pulse Ox
97.9 F 77 18 155/94 93
06/16/24 10:06/16/24 10:06/16/24 10:06/16/24 10:06/16/24 08:00
Intake and Output
06/15/24 06/16/24 06/17/24
06:59 06:59 06:59
Intake Total 1140 / 1140 1060 / 1060
Balance 1140 / 1140 1060 / 1060
Intake:
Oral fluids 1140 / 1140 960 / 960
IV piggybacks 100 / 100
Other:
Number of approximated SMALL 6
amounts of urine
Number of approximated LARGE 3
amounts of urine
Laboratory Results
06/16/24 06:30
06/16/24 06:30
Physical Exam
-
General - well developed, well nourished, no acute distress
Abdomen - soft, non-tender, no CVAT,
Genitalia - normal
Skin - warm & dry with no rash
Neuro - AOx3, no motor deficits
Extremities - no clubbing, no cyanosis, no edema
[2024-06-16] MEDS: NSS 1000 IV ×2 (11:34→23:52)
--- NOTE | 2024-06-16 12:31 | CON.GI ---
Consultation
-
Date/Time Consultation Requested: 06/16/2024
Date/Time Consultation Performed: 06/16/2024
Performing Provider: Vishal Henriquez
Reason for Consultation: proctitis, diarrhea
Medical History
Chief Complaint / HPI
Chief Complaint: proctitis, diarrhea
History of Present Illness:
Patient is a 58-year-old female with recent complicated diverticulitis s/p sigmoidectomy complicated by bladder injury who p/w abdominal pain and nausea/vomiting. Her sigmoidectomy was few weeks ago at [facility]. She recently had her
Vazquez catheter taken out [facility] Admitted with fever 102.3 and SIRS with leukocytosis of 16K. She was diagnosed with catheter associated UTI and was started on antibiotics. However she also started having watery and nonbloody diarrhea.
Repeat CT abdomen showed thickening in the rectum suggestive of proctitis.
Past Medical History
Past Medical History: HTN and Other
Past Surgical History: Other
Social History
Tobacco: Former Smoker
Alcohol: Daily
Allergies / Home Medications
Allergy/AdvReac Type Severity Reaction Status Date / Time
apple Allergy Swelling, Verified 06/07/24 16:23
Itching
mold Allergy sneezing, Verified 06/15/24 20:45
itching
pollen extracts Allergy HAYFEVER-sneezing, Verified 06/15/24 20:45
itching
tree and shrub pollen Allergy sneezing, Verified 06/15/24 20:45
itching
�Medication �Instructions �Recorded
ascorbic acid 30 mg-collagen, 1 tab PO DAILY Supplement 06/07/24
hydrolyzed 833.3 mg tablet
(Collagen Skin Renewal)
cholecalciferol (vitamin D3) 50 50 mcg PO DAILY Supplement 06/07/24
mcg (2,000 unit) tablet
duloxetine 30 mg capsule,delayed 30 mg PO DAILY Mental Health 06/07/24
release
inulin 2 gram chewable tablet 2 g PO DAILY Gastrointestinal Issue 06/07/24
(Fiber Gummies)
lisinopril 10 mg tablet 10 mg PO DAILY Blood Pressure 06/07/24
magnesium oxide 500 mg PO DAILY Supplement 06/07/24
acetaminophen 325 mg tablet 650 mg PO Q6HPRN PRN mild pain 06/13/24
(Tylenol)
cephalexin 500 mg capsule 500 mg PO Q12H Infection 06/13/24
Review of Systems
Vital Signs
Temp Pulse Resp BP Pulse Ox
97.9 F 77 18 155/94 93
06/16/24 10:27 06/16/24 10:27 06/16/24 10:27 06/16/24 10:27 06/16/24 08:00
Physical Exam
Exam
General: Well Developed and Well Nourished
HEENT: Normocephalic
Respiratory: Clear
Cardiac: S1/S2
GI: Soft, Non Tender and Non Distended
Results
WBC 4.5 10^3/uL (4.8-10.8) L 06/16/24 06:30
Hgb 9.5 g/dL (12.0-16.0) L 06/16/24 06:30
Hct 28.4 % (37.0-47.0) L 06/16/24 06:30
MCV 90.4 fL (81.0-99.0) 06/16/24 06:30
Plt Count 314 10^3/uL (130-400) 06/16/24 06:30
Absolute Neuts (auto) 2.5 10^3/uL (1.4-6.5) 06/16/24 06:30
Sodium 144 mmol/L (135-145) 06/16/24 06:30
Potassium 4.1 mmol/L (3.5-5.1) 06/16/24 06:30
Chloride 108 mmol/L (98-107) H 06/16/24 06:30
Carbon Dioxide 26 mmol/L (22-30) 06/16/24 06:30
BUN 6 mg/dl (7-17) L 06/16/24 06:30
Creatinine 0.8 mg/dL (0.6-1.0) 06/16/24 06:30
Calcium 9.1 mg/dl (8.4-10.2) 06/16/24 06:30
Total Bilirubin 0.8 mg/dl (0.2-1.3) 06/13/24 05:13
AST 20 U/L (14-36) 06/13/24 05:13
ALT 22 U/L (0-35) 06/13/24 05:13
Alkaline Phosphatase 85 U/L (38-126) 06/13/24 05:13
Diagnostic Image Results:
Prior GI Procedures:
EGD:
Colonoscopy:
Assessment / Plan
-
58-year-old female with recent complicated diverticulitis s/p sigmoidectomy complicated by bladder injury who presented with CAUTI having diarrhea and CT showing thickening of rectum suggestive of possible proctitis.
Impression / Rec:
1. Possible proctitis, diarrhea -patient recently had complicated diverticulitis and had sigmoidectomy at [facility]. Unfortunately she had associated bladder injury from surgery and had indwelling Vazquez catheter which was recently
removed. She then presented with CAUTI and was started on antibiotics. She is now having diarrhea. CT abdomen showed low-density bowel wall thickening in the rectum suggestive of possible proctitis. Given the recent multiple hospitalization,
will need to rule out infectious etiology such as C. difficile. Stool studies are pending. Patient had colonoscopy on 06/2019 for screening as well as chronic diarrhea. Random biopsies ruled out microscopic colitis.
Total Time Spent with Patient (in minutes): 55
-
-
Thank you for consultation and allowing me to participate in the patient's care. Please call the online retailer GI physician during the after hours with any questions or concerns.
[2024-06-16 15:00] VITALS: BP 133/70
[2024-06-16] MEDS: LOVENOX 40 MG SC (17:27)
[2024-06-16 23:50] VITALS: BP 125/66
[2024-06-17] MEDS: FLAGYL 500 MG 100 IV ×2 (05:56→14:05)
[2024-06-17] MEDS: STERILE WATER FOR INJECTION 10 ML IV (05:59)
[2024-06-17] MEDS: MAXIPIME 1000 MG IV (05:59)
[2024-06-17 07:41] LABS: % Basophils 1.1 % (0-2); % Eosinophils 7.8 % (0-6); % Immature Granulocytes 1.1 % (0-0.5); % Lymphocytes 24.7 % (20.5-51.1); % Monocytes 12.9 % (1.7-9.3); % Neutrophils 52.4 % (42.2-75.2); Absolute Eosinophils 0.3 10^3/uL (0-0.7); Absolute Lymphocytes 0.9 10^3/uL (1.2-3.4); Absolute Monocytes 0.5 10^3/uL (0.1-0.6); Hematocrit 25.2 % (37.0-47.0); Hemoglobin 8.5 g/dL (12.0-16.0); Mean Corp Hgb Conc. 33.7 g/dL (33.0-37.0); Mean Corpuscular Hgb 30.6 pg (27.0-31.0); Mean Corpuscular Volume 90.6 fL (81.0-99.0); Mean Platelet Volume 9.9 fL (7.4-10.4); Nucleated Red Blood Cells % 0 %; Platelet Count 272 10^3/uL (130-400); Red Blood Cell Count 2.78 10^6/uL (4.20-5.40); Red Cell Dist. Width 12.6 % (11.5-14.5); White Blood Cell Count 3.7 10^3/uL (4.8-10.8)
[2024-06-17 08:00] VITALS: BP 139/90
[2024-06-17 08:17] LABS: Blood Urea Nitrogen 4 mg/dl (7-17); Calcium 7.2 mg/dl (8.4-10.2); Carbon Dioxide 23 mmol/L (22-30); Chloride 113 mmol/L (98-107); Estimated Creatinine Clearance 83 ml/min; Glucose 89 mg/dl (70-99); Potassium 3.2 mmol/L (3.5-5.1); Sodium 146 mmol/L (135-145); eGFR > 60.00
[2024-06-17] MEDS: MAGNESIUM OXIDE 500 MG PO (09:01)
[2024-06-17] MEDS: ZESTRIL 10 MG PO (09:01)
[2024-06-17] MEDS: CYMBALTA DELAYED RELEASE 30 MG PO (09:01)
--- NOTE | 2024-06-17 10:14 | W.PN.HOSP.TC ---
Today's Communication/Plan
-
Antibiotics. ID consult.
Assessment / Plan
Assessment / Plan
Physical exam:
General: Acutely ill but nontoxic
HEENT: Normocephalic, Atraumatic and Dry Mucous Membranes
Respiratory: Clear to Auscultation; Negative Wheezes, Rales or Rhonchi
Cardiac: Regular Rhythm and S1/S2
GI: Soft, mild tender and Nondistended
Musculoskeletal: No Clubbing, No Cyanosis and No Edema
Neuro: Awake, Alert and Oriented
Psych: Calm
A/P:
Sepsis suspected due to CAUTI:
Improved
On cefepime. ID feels it is colonizers will discontinue cefepime today. In any way she has received enough doses.
Discussed with urology at bedside yesterday
Urine Cx pseudomonas from 06/07
ID consult appreciated
Acute diarrhea with C. difficile antigen positive and toxin negative:
Started on oral vancomycin
ID consult appreciated
Continue IV fluid
Proctitis:
GI on consult and recommended continue current management and they signed off.
She can see either GI or colorectal surgery as outpatient.
Hypokalemia:
Replete and trend
Hypernatremia:
Mild
Change to hypotonic fluids
Hypertension:
Continue antihypertensives
Monitor blood pressure adjust medications accordingly
Anemia:
Drifting down from admission
Hemoglobin 8.5 today
Repeat h/h later today
Check some extra anemia work up in am including iron substrate, B12, folate, LDH, LFTs, reticulocyte count.
GI consulted
Cont to monitor
Depression:
Continue antidepressant duloxetine
DVT prophylaxis-Lovenox
CODE STATUS-full code
Anticipated Discharge: 24 - 48 hours
Subjective/Interval History
-
Date of Service: June 17, 2024
Patient is still having diarrhea but it is slowing down. She does have some tenesmus. Still having nausea on and off. No vomiting. Abdominal discomfort in lower abdomen present but much less than before. Afebrile.
Objective Data
-
Labs:
Laboratory Results
06/17/24
06:02
WBC 3.7 L
Hgb 8.5 L
Hct 25.2 L
Plt Count 272
Sodium 146 H
Potassium 3.2 L
Chloride 113 H
Carbon Dioxide 23
BUN 4 L
Creatinine 0.7
Glucose 89
Calcium 7.2 L D
Vital Signs:
Vital Signs
Temp Pulse Resp BP Pulse Ox
98.4 F 72 18 139/90 95
06/17/24 08:00 06/17/24 09:01 06/17/24 08:00 06/17/24 09:01 06/17/24 10:00
I&O
06/16/24 06/17/24 06/18/24
06:59 06:59 06:59
Intake Total 1060 / 1060 2930 / 2930
Output Total
Balance 1060 / 1060 2923 / 2923
[2024-06-17] MEDS: KCL 40 MEQ PO (11:03)
[2024-06-17] MEDS: D5W 1000 IV (12:00)
--- NOTE | 2024-06-17 12:42 | W.PN.GI.CBS2 ---
Today's Communication / Plan
-
Continue flagyl, GI s/o.
Assessment / Plan
-
58-year-old female with recent complicated diverticulitis s/p sigmoidectomy complicated by bladder injury who presented with CAUTI having diarrhea and CT showing thickening of rectum suggestive of possible proctitis.
Impression / Rec:
1. Possible proctitis, diarrhea -patient recently had complicated diverticulitis and had sigmoidectomy at [facility]. Unfortunately she had associated bladder injury from surgery and had indwelling Vazquez catheter which was recently
removed. She then presented with CAUTI and was started on antibiotics. She is now having diarrhea. CT abdomen showed low-density bowel wall thickening in the rectum suggestive of possible proctitis. Given the recent multiple hospitalization,
will need to rule out infectious etiology such as C. difficile. Stool studies are pending. Patient had colonoscopy on 06/2019 for screening as well as chronic diarrhea. Random biopsies ruled out microscopic colitis.
Stool studies showed she has C. difficile antigen positive but toxin negative. Currently on Flagyl 500mg Q8. Her diarrhea has improved markedly. Complete empirical course of Flagyl. GI will sign off.
Total Time Spent with Patient (in minutes): 35
Subjective
Subjective
Date of Service: June 17, 2024
diarrhea improving
Objective
Data Reviewed
Laboratory Data:
Laboratory Results
Total Bilirubin 0.8 mg/dl (0.2-1.3) 06/13/24 05:13
AST 20 U/L (14-36) 06/13/24 05:13
ALT 22 U/L (0-35) 06/13/24 05:13
Alkaline Phosphatase 85 U/L (38-126) 06/13/24 05:13
Vital Signs and I&O:
Vital Signs
Temp Pulse Resp BP Pulse Ox
98.4 F 72 18 139/90 95
06/17/24 08:00 06/17/24 09:01 06/17/24 08:00 06/17/24 09:01 06/17/24 10:00
I&O
06/16/24 06/17/24 06/18/24
06:59 06:59 06:59
Intake Total 1060 / 1060 2930 / 2930
Output Total
Balance 1060 / 1060 2923 / 2923
--- NOTE | 2024-06-17 13:54 | CON.ID ---
Consultation
-
Date/Time Consultation Requested: June 16, 2024 1710
Date/Time Consultation Performed: June 17, 2024 1400
Requesting Provider: Dr. Ollie Lagunas
Performing Provider: Dr. Bridgette Davis
Reason for Consultation: Diarrhea, C. diff Ag+, toxin neg
Chief Complaint / Past History
Chief Complaint
Diarrhea
History of Present Illness
58-year-old female with history of diverticulitis status post recent partial colectomy at [facility] on May 31 complicated by bladder injury requiring repair and Vazquez placement. On June 07 she presented to ED with gross hematuria. She was
discharged on ciprofloxacin for presumed UTI. She then underwent outpatient cystogram which showed no bladder leak. The Vazquez was removed on June 13. She then developed lower abdominal pain, fever and chills. She presented back to the ED the
same day. Temperature was 102.3, white count 15.9. UA unremarkable. She was started on cefepime. The next day she started having frequent diarrhea every day. June 15 IV metronidazole added. Yesterday stool C. difficile antigen positive,
toxin negative. Today, diarrhea is slightly improved but still present. She still has tenesmus and urge to go. + lower abd cramping. No prior history of C. difficile in the past. No urinary symptoms at this time. CT of the abdomen pelvis
possible proctitis.
Past History
Additional Past Medical History:
Hypertension
Depression
Diverticulitis status post partial colectomy at [facility] (05/31/2024) complicated bladder injury s/p repair
Allergy History:
apple Allergy (Verified 06/07/24 16:23)
Swelling, Itching
mold Allergy (Verified 06/15/24 20:45)
sneezing, itching
pollen extracts Allergy (Verified 06/15/24 20:45)
HAYFEVER-sneezing, itching
tree and shrub pollen Allergy (Verified 06/15/24 20:45)
sneezing, itching
Medications Reviewed: Yes
Current Antibiotics:
cefepime d5
metronidazole d3
Social History
Tobacco: Non-Smoker
Alcohol: None
Drug: None
Family History
Family History: Not Pertinent
Review of Systems
Vital Signs
Temp Pulse Resp BP Pulse Ox
98.4 F 72 18 139/90 95
06/17/24 08:00 06/17/24 09:01 06/17/24 08:00 06/17/24 09:01 06/17/24 10:00
Physical Exam
Physical Exam
Constitutional: No Acute Distress and Comfortable
Eyes: Sclera Anicteric
Cardiovascular: Regular Rate and S1/S2
Pulmonary: Clear
Gastrointestinal: Soft, Non Tender, Non Distended and Normal Bowel Sounds
Extremities: Negative Edema
Neurological: AO x 3
Lab / Diagnostic Study Results
Abs Immat Gran (auto) 0.0 10^3/uL (0-0.05) 06/17/24 06:02
Absolute Neuts (auto) 2.0 10^3/uL (1.4-6.5) 06/17/24 06:02
Absolute Lymphs (auto) 0.9 10^3/uL (1.2-3.4) L 06/17/24 06:02
Absolute Monos (auto) 0.5 10^3/uL (0.1-0.6) 06/17/24 06:02
Absolute Basos (auto) 0.0 10^3/uL (0-0.2) 06/17/24 06:02
Immature Gran % 1.1 % (0-0.5) H 06/17/24 06:02
Neutrophils % 52.4 % (42.2-75.2) 06/17/24 06:02
Lymphocytes % 24.7 % (20.5-51.1) 06/17/24 06:02
Monocytes % 12.9 % (1.7-9.3) H 06/17/24 06:02
Eosinophils % 7.8 % (0-6) H 06/17/24 06:02
Basophils % 1.1 % (0-2) 06/17/24 06:02
Lactic Acid Cancelled 06/13/24 12:30
Procalcitonin 0.81 ng/ml (0.0-0.25) H 06/13/24 08:42
Ur Squamous Epith Cells 11-15 /LPF (Few) 06/13/24 06:24
Microbiology Results
Micro:
06/16/24 12:24 Salmonella/Shigella Culture - Preliminary
Feces/Stool Culture in Progress
Campylobacter Culture - Preliminary
Culture in Progress
Shiga Toxin Test - Final
No E. coli Shiga Toxin 1 or 2 detected.
06/13/24 08:42 Blood Culture - Preliminary
Blood/Venous No Growth in 4 days- Final report to follow
06/13/24 16:38 Blood Culture - Preliminary
Blood/Venous No Growth in 72 hours- Final report to follow
06/16/24 12:24 C. difficile GDH Antigen & Toxins - Final
Feces/Stool C. difficile antigen positive, toxin negative.
Clostridium difficile present, but toxin not detected.
Patient may be a carrier, colonized with nontoxinogenic
strain or the level of toxin in sample is below detection
limits. This information should be used in conjunction with
the patient's clinical history.
Assessment / Plan
# Suspect C. difficile infection.
- C. dif Ag+, toxin neg
- Clinical context suspicious for C. difiicile infection : recent abx exposure, + leukocytosis, persistent diarrhea
- Start Vancomycin 125mg po q6h x 10days.
- DC metronidazole.
# Pseudomonas bacteruria
- Has had 10 days of abx.
- DC cefepime.
[2024-06-17] MEDS: ZOFRAN 4 MG IV (14:06)
[2024-06-17 15:03] VITALS: BP 131/78
[2024-06-17 15:04] LABS: Hematocrit 27.7 % (37.0-47.0); Hemoglobin 9.8 g/dL (12.0-16.0)
[2024-06-17 15:26] LABS: Blood Urea Nitrogen 5 mg/dl (7-17); Calcium 8.8 mg/dl (8.4-10.2); Carbon Dioxide 27 mmol/L (22-30); Chloride 107 mmol/L (98-107); Estimated Creatinine Clearance 83 ml/min; Glucose 156 mg/dl (70-99); Potassium 3.7 mmol/L (3.5-5.1); Sodium 142 mmol/L (135-145); eGFR > 60.00
[2024-06-17] MEDS: FIRVANQ 125 MG PO ×2 (17:14→23:27)
[2024-06-17] MEDS: LOVENOX 40 MG SC (17:14)
[2024-06-17] MEDS: 0.45%NACL 1000 IV (17:14)
[2024-06-17 23:29] VITALS: BP 151/86
[2024-06-18] MEDS: 0.45%NACL 1000 IV ×2 (05:38→16:57)
[2024-06-18] MEDS: FIRVANQ 125 MG PO ×4 (05:38→23:12)
[2024-06-18 07:05] VITALS: BP 153/72
[2024-06-18] MEDS: CYMBALTA DELAYED RELEASE 30 MG PO (07:52)
[2024-06-18] MEDS: ZESTRIL 10 MG PO (07:52)
[2024-06-18] MEDS: MAGNESIUM OXIDE 500 MG PO (07:52)
[2024-06-18 08:01] LABS: % Basophils 1.4 % (0-2); % Eosinophils 7.9 % (0-6); % Immature Granulocytes 1.8 % (0-0.5); % Lymphocytes 24.2 % (20.5-51.1); % Monocytes 10.2 % (1.7-9.3); % Neutrophils 54.5 % (42.2-75.2); Absolute Basophils 0.1 10^3/uL (0-0.2); Absolute Eosinophils 0.4 10^3/uL (0-0.7); Absolute Immature Granulocytes 0.1 10^3/uL (0-0.05); Absolute Lymphocytes 1.1 10^3/uL (1.2-3.4); Absolute Monocytes 0.5 10^3/uL (0.1-0.6); Absolute Neutrophils 2.4 10^3/uL (1.4-6.5); Hematocrit 29.1 % (37.0-47.0); Mean Corp Hgb Conc. 34.4 g/dL (33.0-37.0); Mean Corpuscular Hgb 31.4 pg (27.0-31.0); Mean Corpuscular Volume 91.5 fL (81.0-99.0); Mean Platelet Volume 9.9 fL (7.4-10.4); Nucleated Red Blood Cells % 0 %; Platelet Count 314 10^3/uL (130-400); Red Blood Cell Count 3.18 10^6/uL (4.20-5.40); Red Cell Dist. Width 12.4 % (11.5-14.5); Reticulocyte Count 1.2 % (0.4-2.8); White Blood Cell Count 4.4 10^3/uL (4.8-10.8)
[2024-06-18 08:27] LABS: ALT (SGPT) 20 U/L (0-35); AST (SGOT) 27 U/L (14-36); Albumin 3.2 g/dl (3.5-5.0); Alkaline Phosphatase 70 U/L (38-126); Blood Urea Nitrogen 5 mg/dl (7-17); Calcium 9.1 mg/dl (8.4-10.2); Carbon Dioxide 26 mmol/L (22-30); Chloride 105 mmol/L (98-107); Direct Bilirubin 0.1 mg/dl (0.0-0.4); Estimated Creatinine Clearance 83 ml/min; Glucose 110 mg/dl (70-99); Iron 51 ug/dl (37-170); LDH 196 U/L (120-246); Potassium 3.9 mmol/L (3.5-5.1); Sodium 141 mmol/L (135-145); Total Bilirubin 0.3 mg/dl (0.2-1.3); Total Protein 5.5 g/dl (6.3-8.2); eGFR > 60.00
[2024-06-18 08:37] LABS: Percent Saturation 29 % (20-50); Total Iron Binding Capacity 172 ug/dl (265-497)
[2024-06-18 09:30] LABS: Folate 14.7 ng/ml (2.76-20); Vitamin B12 414 pg/ml (239-931)
--- NOTE | 2024-06-18 10:06 | W.PN.HOSP.TC ---
Today's Communication/Plan
-
see bold
Assessment / Plan
Assessment / Plan
Gen: NAD, AAOx3.
Eyes: EOMI, PERRLA, no scleral icterus.
Neck: supple.
CV: RRR, +S1/S2, no m/r/g.
Resp: CTAB, no rales, wheezes, or rhonchi.
Abd: +BS, soft, NT, ND
Skin: No rashes.
Neuro: CN 2-12 intact, non-focal.
Psych: Normal mood and affect.
CT A/P 06/15/24: Transverse scarring in the musculature and subcutaneous tissues of the lower anterior pelvic wall consistent with prior surgical intervention. The anterior margin of the urinary bladder is thickened and may be tethered to the
scarring at the anterior pelvic wall. Low density bowel wall thickening of the rectum suggesting possible proctitis.
Sepsis due to CAUTI:
-UCx 06/07/24 with Pseudomonas
-s/p 10 day course of Cefepime (despite ID thinking UCx is colonizer)
Acute diarrhea with C. difficile antigen positive and toxin negative:
-cont PO Vanco x 10 days as per ID
-cont IVFs
Other problems:
Proctitis: GI saw in c/s, outpt follow up with GI or CRS
Hypokalemia, resolved
Hypernatremia, resolved
Essential Hypertension: cont Lisinopril
Anemia: Hb stable
Depression: cont Cymbalta
FULL/Lovenox
Anticipated Discharge: Within 24 hours
Subjective/Interval History
-
Date of Service: June 18, 2024
Diarrhea is waxing and waning.
Objective Data
-
Labs:
Laboratory Results
06/18/24
07:01
WBC 4.4 L
Hgb 10.0 L
Hct 29.1 L
Plt Count 314
Sodium 141
Potassium 3.9
Chloride 105
Carbon Dioxide 26
BUN 5 L
Creatinine 0.7
Glucose 110 H
Calcium 9.1
Total Bilirubin 0.3
AST 27
ALT 20
Alkaline Phosphatase 70
Vital Signs:
Vital Signs
Temp Pulse Resp BP Pulse Ox
98.4 F 53 17 153/72 99
06/18/24 07:05 06/18/24 07:05 06/18/24 07:05 06/18/24 07:05 06/18/24 07:45
I&O
06/17/24 06/18/24 06/19/24
06:59 06:59 06:59
Intake Total 2930 / 2930 2870 / 2870
Output Total 7 / 7
Balance 2923 / 2923 2870 / 2870
[2024-06-18 15:15] VITALS: BP 168/94
--- NOTE | 2024-06-18 15:42 | W.PN.ID1 ---
Date of Service
Date of Service: June 18, 2024
Today's Communication
Continue po Vancomycin.
Assessment / Plan
# Suspect C. difficile infection.
- C. dif Ag+, toxin neg
- Clinical context suspicious for C. difficile infection : recent abx exposure, + leukocytosis, persistent diarrhea
-Continue Vancomycin 125mg po q6h (day 2 of 10).
- Follow clinically
# Pseudomonas bacteruria
- s/p days of abx -> dc'd 06/17/24
# Conditions LINE APPLIANCE ASSEMBLER
Hypertension
Depression
Diverticulitis status post partial colectomy at [facility] (05/31/2024) complicated bladder injury s/p repair.
Chief Complaint
-: Other (diarrhea)
Subjective / Review of Systems
diarrhea x 6 today
Vital Signs / Physical Exam
Vital Signs
Vital Signs
Temp Pulse Resp BP Pulse Ox
98.4 F 53 17 153/72 99
06/18/24 07:05 06/18/24 07:05 06/18/24 07:05 06/18/24 07:05 06/18/24 07:45
Physical Exam
Constitutional: No Acute Distress
Pulmonary: Clear
Gastrointestinal: Soft and Non Tender
Neurological: AO x 3
Objective Data
Lab Data
Lab Results
06/18/24 07:01
06/18/24 07:01
Estimated Creat Clear 83 ml/min 06/18/24 07:01
Lactic Acid Cancelled 06/13/24 12:30
Total Bilirubin 0.3 mg/dl (0.2-1.3) 06/18/24 07:01
AST 27 U/L (14-36) 06/18/24 07:01
ALT 20 U/L (0-35) 06/18/24 07:01
Alkaline Phosphatase 70 U/L (38-126) 06/18/24 07:01
Most recent labs reviewed.
Micro Results:
06/16/24 12:24 Salmonella/Shigella Culture - Final
Feces/Stool No Salmonella, Shigella, Aeromonas or Plesiomonas species
isolated.
Campylobacter Culture - Final
No Campylobacter species isolated.
Shiga Toxin Test - Final
No E. coli Shiga Toxin 1 or 2 detected.
06/13/24 08:42 Blood Culture - Final
Blood/Venous No Growth - Final Report
06/13/24 16:38 Blood Culture - Preliminary
Blood/Venous No Growth in 4 days- Final report to follow
06/16/24 12:24 C. difficile GDH Antigen & Toxins - Final
Feces/Stool C. difficile antigen positive, toxin negative.
Clostridium difficile present, but toxin not detected.
Patient may be a carrier, colonized with nontoxinogenic
strain or the level of toxin in sample is below detection
limits. This information should be used in conjunction with
the patient's clinical history.
[2024-06-18 16:00] VITALS: BP 162/89
[2024-06-18] MEDS: TYLENOL 650 MG PO (17:06)
[2024-06-18] MEDS: ZOFRAN 4 MG IV (17:06)
[2024-06-18] MEDS: LOVENOX 40 MG SC (17:07)
[2024-06-18 23:43] VITALS: BP 133/74
[2024-06-19] MEDS: FIRVANQ 125 MG PO ×2 (05:17→11:25)
[2024-06-19] MEDS: 0.45%NACL 1000 IV (05:21)
[2024-06-19 07:27] VITALS: BP 159/89
[2024-06-19] MEDS: MAGNESIUM OXIDE 500 MG PO (08:01)
[2024-06-19] MEDS: ZESTRIL 10 MG PO (08:01)
[2024-06-19] MEDS: CYMBALTA DELAYED RELEASE 30 MG PO (08:01)
--- NOTE | 2024-06-19 10:07 | W.PN.HOSP.TC ---
Today's Communication/Plan
-
d/c
Assessment / Plan
Assessment / Plan
Gen: NAD, AAOx3.
Eyes: EOMI, PERRLA, no scleral icterus.
Neck: supple.
CV: remains RRR, +S1/S2, no m/r/g.
Resp: remains CTAB, no rales, wheezes, or rhonchi.
Abd: +BS, soft, NT, ND
Skin: No rashes.
Neuro: remains CN 2-12 intact, non-focal.
Psych: Normal mood and affect.
CT A/P 06/15/24: Transverse scarring in the musculature and subcutaneous tissues of the lower anterior pelvic wall consistent with prior surgical intervention. The anterior margin of the urinary bladder is thickened and may be tethered to the
scarring at the anterior pelvic wall. Low density bowel wall thickening of the rectum suggesting possible proctitis.
Sepsis due to CAUTI:
-UCx 06/07/24 with Pseudomonas
-s/p 10 day course of Cefepime (despite ID thinking UCx is colonizer)
Acute diarrhea with C. difficile antigen positive and toxin negative:
-cont PO Vanco x 10 days as per ID
-on IVFs
Other problems:
Proctitis: GI saw in c/s, outpt follow up with GI or CRS
Hypokalemia, resolved
Hypernatremia, resolved
Essential Hypertension: cont Lisinopril
Anemia: Hb stable
Depression: cont Cymbalta
FULL/Lovenox
Total time spent on d/c = 31 min. This included today's physical exam, progress note, review of laboratory and diagnostic data, preparation of discharge documents and prescriptions, and discussions about the pt's hospital course and discharge plan
with the patient and other medical record assistant involved in the patient's care.
Anticipated Discharge: Today
Subjective/Interval History
-
Date of Service: June 19, 2024
Diarrhea has improved.
Objective Data
-
Vital Signs:
Vital Signs
Temp Pulse Resp BP Pulse Ox
98.4 F 71 18 133/74 93
06/18/24 23:43 06/18/24 23:43 06/18/24 23:43 06/18/24 23:43 06/18/24 23:43
I&O
06/18/24 06/19/24 06/20/24
06:59 06:59 06:59
Intake Total 2870 / 2870 1080 / 1080
Balance 2870 / 2870 1080 / 1080
--- NOTE | 2024-06-19 10:49 | CM ---
Patient with door shut, does not request visits, per nursing and physician patient for discharge home today and no needs anticipated. CM will continue to follow for discharge planning needs.
Plan; home with no needs anticipated at this time.
--- NOTE | 2024-06-19 12:00 | W.DCSUMMARY ---
Discharge Summary
Discharge Data
Date of Admission: 06/13/24
Date of Discharge: 06/19/24
-
Pending Results: No
Hospital Course
Primary diagnoses:
Acute C. difficile colitis
Sepsis due to catheter associated urinary tract infection
Secondary diagnoses:
Proctitis
Hypokalemia
Hypernatremia
Essential Hypertension
Anemia
Depression
Consultants:
Infectious disease, gastroenterology
Urology
Imaging:
CT A/P 06/15/24: Transverse scarring in the musculature and subcutaneous tissues of the lower anterior pelvic wall consistent with prior surgical intervention. The anterior margin of the urinary bladder is thickened and may be tethered to the
scarring at the anterior pelvic wall. Low density bowel wall thickening of the rectum suggesting possible proctitis.
58-year-old female presented with chief complaint of fever recently to be done on admission. She recently had complicated diverticulitis status post colectomy resulting in a bladder complication and had a Vazquez catheter in place postoperatively.
The Vazquez catheter was removed 1 day prior to admission. Hospital course by problem was:
Sepsis due to CAUTI: UCx 06/07/24 with Pseudomonas. The patient completed a 10 day course of Cefepime (despite ID thinking UCx is colonizer).
Acute diarrhea with C. difficile antigen positive and toxin negative: The patient developed diarrhea early during hospitalization. CT A/P 06/15/24 above. Patient's C. difficile antigen was positive and toxin was negative. Patient's clinical picture
was consistent with acute C. difficile colitis and she was placed on oral vancomycin. Her diarrhea improved. She was supported with IV fluids. She was discharged in medically stable condition to complete 10 days of vancomycin. In review of this
case it is very likely the patient had C. difficile colitis prior to admission. I do not believe this was a hospital-acquired case of C. difficile colitis.
Discharge Plan
-
Patient Disposition: Home (Routine Discharge)
Discharge Diagnosis/Procedures: C. difficile colitis
Condition: Good
Diet: No restrictions
Activity: No restrictions
Driving Restrictions: As prior to admission
Referrals:
Sheree Thomas PA-C [Family Provider] - in less than 1 week
Prescriptions:
New
vancomycin 125 mg capsule
125 mg PO QID Qty: 32 0RF
Continued
lisinopril 10 mg tablet
10 mg PO DAILY
magnesium oxide 500 mg magnesium Tablet
500 mg PO DAILY
duloxetine 30 mg capsule,delayed release(DR/EC)
30 mg PO DAILY
cholecalciferol (vitamin D3) 50 mcg (2,000 unit) Tablet
50 mcg PO DAILY
Fiber Gummies 2 gram Tablet,Chewable
2 g PO DAILY
Collagen Skin Renewal 30-833.3 mg Tablet
1 tab PO DAILY
acetaminophen [Tylenol] 325 mg Tablet
650 mg PO Q6HPRN PRN (Reason: mild pain)
Discontinued
cephalexin 500 mg capsule
500 mg PO Q12H
Discharge Orders:
Discharge Patient (As Directed); Ordered 06/19/24
Ordered By: George Reeves
Discharge Date and Time
Print Language: MACEDONIAN
== END 2024-06-19 12:25 | disposition home or self-care (01) | DRG 698 ==
LOC: 3 WEST ACU 12:47
PROVIDERS: Student in an Organized Health Care Education/Training Program; ADMITTING PHYSICIAN Hospitalist; ATTENDING PHYSICIAN Internal Medicine; CONSULT PHYSICIAN Internal Medicine Gastroenterology; CONSULT PHYSICIAN Internal Medicine Infectious Disease; CONSULT PHYSICIAN Specialist; EMERGENCY PHYSICIAN Emergency Medicine; FAMILY PHYSICIAN Physician Assistant Medical
DX: T83.511A Infection and inflammatory reaction due to indwelling urethral catheter, initial encounter (principal); A41.9 Sepsis, unspecified organism; A04.72 Enterocolitis due to Clostridium difficile, not specified as recurrent; E87.0 Hyperosmolality and hypernatremia; D64.9 Anemia, unspecified; F32.A Depression, unspecified; I10 Essential (primary) hypertension; N13.70 Vesicoureteral-reflux, unspecified; Y84.6 Urinary catheterization as the cause of abnormal reaction of the patient, or of later complication, without mention of misadventure at the time of the procedure; N39.0 Urinary tract infection, site not specified; E87.6 Hypokalemia; J30.1 Allergic rhinitis due to pollen; K62.89 Other specified diseases of anus and rectum; N39.41 Urge incontinence; R09.81 Nasal congestion; Z79.899 Other long term (current) drug therapy; Z87.19 Personal history of other diseases of the digestive system; Z90.49 Acquired absence of other specified parts of digestive tract; Z87.891 Personal history of nicotine dependence
CPT/HCPCS: 74177; 80048; 80053; 81003; 81015; 82248; 82607; 82746; 82962; 83540; 83550; 83605; 83615; 84145; 85014; 85018; 85025; 85045; 87040; 87045; 87046; 87324; 87427; 87449; 87811; 96361; 96374; 96375; 99284; Q9967

== ENCOUNTER → 2024-12-26 10:16 | Outpatient (REF) | payer OTHER, SELFPAY | LOC: HWRAD 10:16 | PROVIDERS: ATTENDING PHYSICIAN Physician Assistant Medical | DX: R10.2 Pelvic and perineal pain (principal) | CPT/HCPCS: 76830; 76856 ==

== ENCOUNTER → 2025-01-10 07:46 | Outpatient (REF) | payer OTHER, SELFPAY | LOC: RAD 07:46 | PROVIDERS: ATTENDING PHYSICIAN Physician Assistant Medical | DX: R10.2 Pelvic and perineal pain (principal) | CPT/HCPCS: 74177; Q9967 ==

== ENCOUNTER → 2025-02-27 12:03 | Outpatient (REF) | payer OTHER, SELFPAY | LOC: REG 12:03 | PROVIDERS: ATTENDING PHYSICIAN Obstetrics & Gynecology; FAMILY PHYSICIAN Physician Assistant Medical | DX: Z22.322 Carrier or suspected carrier of Methicillin resistant Staphylococcus aureus (principal) | CPT/HCPCS: 87070 ==

== ENCOUNTER → 2025-03-20 12:26 | Outpatient (REF) | payer OTHER, SELFPAY | LOC: REG 12:26 | PROVIDERS: ATTENDING PHYSICIAN Obstetrics & Gynecology; FAMILY PHYSICIAN Physician Assistant Medical | DX: Z01.812 Encounter for preprocedural laboratory examination (principal) | CPT/HCPCS: 36415; 87070 ==

== ENCOUNTER → 2025-04-23 11:02 | Outpatient (REF) | payer OTHER, SELFPAY | LOC: RCS 11:02 | PROVIDERS: ATTENDING PHYSICIAN Internal Medicine; FAMILY PHYSICIAN Physician Assistant Medical | DX: Z01.810 Encounter for preprocedural cardiovascular examination (principal); I44.7 Left bundle-branch block, unspecified; I10 Essential (primary) hypertension; R73.03 Prediabetes; E66.811 Obesity, class 1 | CPT/HCPCS: 78452; 93017; A9500 ==

== ENCOUNTER → 2025-04-24 10:13 | Outpatient (REF) | payer OTHER, SELFPAY ==
[2025-04-24 11:59] LABS: Iron 105 ug/dl (37-170); Very Low Density Lipoprotein 17 mg/dl (0-30)
[2025-04-24 12:09] LABS: Total Iron Binding Capacity 266 ug/dl (265-497)
[2025-04-24 12:11] LABS: HDL Cholesterol 117 mg/dl; LDL Cholesterol, Calculated 146 mg/dl
== END ==
LOC: RCS 10:13
PROVIDERS: ATTENDING PHYSICIAN Internal Medicine; FAMILY PHYSICIAN Physician Assistant Medical
DX: Z01.810 Encounter for preprocedural cardiovascular examination (principal); I44.7 Left bundle-branch block, unspecified; I10 Essential (primary) hypertension; R73.03 Prediabetes; E66.811 Obesity, class 1
CPT/HCPCS: 36415; 80061; 83540; 83550; 93307; Q9957

== ENCOUNTER → 2025-07-08 13:51 | Outpatient (REF) | payer OTHER, SELFPAY | LOC: HWWDC 13:51 | PROVIDERS: ATTENDING PHYSICIAN Physician Assistant Medical | DX: Z00.00 Encounter for general adult medical examination without abnormal findings (principal) | CPT/HCPCS: 77063; 77067 ==

== ENCOUNTER → 2025-07-25 10:16 | Outpatient (REF) | payer OTHER, SELFPAY | LOC: HWRCS 10:16 | PROVIDERS: ATTENDING PHYSICIAN Internal Medicine; FAMILY PHYSICIAN Physician Assistant Medical | DX: I50.21 Acute systolic (congestive) heart failure (principal); I44.7 Left bundle-branch block, unspecified | CPT/HCPCS: 93306 ==

== ENCOUNTER 2025-08-02 05:51 | Day surgery (SDC) | payer OTHER, SELFPAY ==
[2025-07-29 11:59] LABS: Hematocrit 42.3 % (37.0-47.0); Hemoglobin 14.1 g/dL (12.0-16.0); Mean Corp Hgb Conc. 33.3 g/dL (33.0-37.0); Mean Corpuscular Volume 93.0 fL (81.0-99.0); Nucleated Red Blood Cells % 0 %; Platelet Count 279 10^3/uL (130-400); Red Cell Dist. Width 12.1 % (11.5-14.5)
[2025-07-29 13:14] VITALS: BMI 29.2
[2025-07-29 13:54] LABS: ALT (SGPT) 18 U/L (0-35); AST (SGOT) 18 U/L (14-36); Albumin 4.7 g/dl (3.5-5.0); Alkaline Phosphatase 64 U/L (38-126); Blood Urea Nitrogen 17 mg/dl (7-17); Calcium 9.6 mg/dl (8.4-10.2); Carbon Dioxide 28 mmol/L (22-30); Chloride 105 mmol/L (98-107); Estimated Creatinine Clearance 82 ml/min; Glucose 97 mg/dl (70-99); Potassium 4.5 mmol/L (3.5-5.1); Sodium 141 mmol/L (135-145); Total Protein 7.1 g/dl (6.3-8.2); eGFR > 60.00
[2025-08-02] VITALS (22 sets, daily range): BP systolic 89–112; BP diastolic 64–88
[2025-08-02 06:52] LABS: Glucose - Point of Care 106 mg/dl (70-99)
--- NOTE | 2025-08-02 07:24 | W.ICD.CONTRA ---
Post ICD/PARAPROFESSIONAL AIDE-D
-
History of CA?: No
LV Function
Left ventricular function study result?: Ejection Fraction </= 35%
ACEI/ARB/ARNI
Patient already on ACEI/ARB/ARNI: Yes
Beta-Evelyn
Patient already on Beta Evelyn: Yes
--- NOTE | 2025-08-02 13:12 | ITS.CL.ICD ---
Cardiovascular Surgical Tech - ICD
Implantable Cardioverter Defibrillator
Procedure Report:
BiV ICD
REGIONAL VICE PRESIDENT SURGICAL SALES-D with Bi-Ventricular Implantable Cardiac Defibrillator (BiV-ICD) Placement:
Ms. Alonso is a 59 years old woman with non-ischemic cardiomyopathy presented with class II to III NYHA symptoms with LVEF of 30% and has LBBB, with persistent low LVEF despite on guideline directed optimal medical treatment for over 3 months. She
is in need for a BiV pacing for cardiac resynchronization therapy with defibrillator (REGIONAL VICE PRESIDENT SURGICAL SALES-D). Given his low EF, she is at risk of sudden cardiac and an ICD is recommended.
Indications: Irreversible and symptomatic NYHA Class III chronic systolic congestive heart failure with depressed LV ejection fraction of 30% despite on maximal guideline directed medical therapy, Wide QRS with LBBB.
Date of the Procedure: 08/02/2025
Pre-Operative Diagnosis: Systolic heart failure and LBBB
Post-Operative Diagnosis: Systolic heart failure and LBBB
Procedure Performed: REGIONAL VICE PRESIDENT SURGICAL SALES-D with BIVENTRICULAR IMPLANTABLE DEFIBRILLATOR IMPLANTATION
Surgeon:
Parminder Hair MD
Anesthesia:
See anesthesia records
Detailed Description of the Procedure:
The patient was identified using hospital identification and informed consent obtained for the procedure. The risks were explained to the patient and the family including, but not limited to: Bleeding, infection, arrhythmia, stroke,
vascular/cardiac/lung puncture, surgery, pacemaker dependency/device malfunction. All questions were answered.
A surgical pause was performed in accordance with hospital regulations. Anesthesia service provided sedation as reported separately. Antibiotics administered IV for risk of bacterial colonization. After obtaining informed and written consent, the
patient was brought to the electrophysiology laboratory.
A timeout was performed immediately before the procedure. The left chest was prepped from the nipple to the angle of the jaw with chlorhexidine, and draped following sterile technique in usual routine.
Following infiltration with local anesthetic, the axillary vein was accessed under ultrasound and the fluoroscopic guidance using the micro-puncture apparatus. The second and third sticks were again obtained in a similar fashion. The guide wires
were advanced to the inferior vena cava (IVC) under flouro guidance.
A subcutaneous pocket was created with blunt dissection and use of electrocautery. Hemostasis was excellent.
The right ventricular lead was placed at the RV apoical septum with defibrillator coil well into the RV cavity and screwed in place with appropriate sensing and threshold using active fixation.
Attention then was turned to the coronary sinus. The guide wire was advanced to the IVC and a long hemostatic peel away sheath was advanced to the RA.
The CS was cannulated using radiofocus glidewire.
There was an acute turn to the entrance of coronary sinus. The sheath was advanced into the CS over a Terumu glidewire. Coronary sinus venography was obtained with a balloon catheter in the CS. ~7 cc contrast used. CS anatomy revealed middle
cardiac, a posterolateral branch and an kathleen lateral vein. The lateral br would not accomodate the pacing lead. The posterolateral branch was accessed using a BMW wire and an inner sheath. The double canted quadripolar lead was placed in the
lateral branch and it had excellent thresholds and great EKG morphology. During pacing, QRS complex was favorable, with a QS in lateral leads and RBBB configuration during LV pacing. It was deemed ideal for biventricular pacing. Diaphragmatic
stimulation was not present with high output pacing here.
Unfortunately, the lead was unstable and came out with the removal of the CS sheath. The same process was repeated and using another inner sheath through 9Fr sheath, the PL branch was again cannulated and the canted lead was placed in the CS. The
lead was wedged enough and had excellent sensing and threshold parameters. Unfortunately, the lead was again dislodged with removal of the inner sheath.
The CS was again cannulated and the CS venography obtained and middle cardiac branch was selected as a target. The lateral branch was engaged via middle cardiac. There was phrenic capture at the lateral position. This PL branch was quite large and
the lead was not able to wedge adequately and was again removed.
The PL branch was big and wide and decision was made to place an active fix CS wire to avoid dislodgement. A long active fixation quad LV lead was used and advanced into the postero-lateral br over the BMW wire with anticlock movement. Once adequate
location achieved the LV lead was deployed by clock tavarez turns. Once adequate fixation achieved, the push and pull test was done and lead location was confirmed.
The inner and long guiding sheaths were removed from the CS without change in lead position, impedance, sensing, or capture. Short VA interval permitted AdaptivCRT pacing with BiV / LV only pacing. The lead was sutured to the underlying pectoralis
fascia with 2-0 Ethibond stitches.
The atrial lead was placed at the right atrial appendage with passive fixation.
RA and RV leads inserted fluoroscopically, tested and functioning appropriately with upright current of injury (lead information below). The leads were secured to the deep fascia with 2-0 Ethibond sutures placed on the anchoring sleeves.
The leads were attached to the pulse generator in standard configuration with acceptable sensing and threshold parameters. The pocket was irrigated with antibiotic solution; the pocket was inspected with no active bleeding noted. The device and the
leads were placed in the pocket.
ATyrx pouch was placed around the device and the leads.
Deep subcutaneous tissues were closed with 3 layers of 2-0 V loc sutures and the dermis was reopposed using a running 4-0 Biosyn subcuticular suture. Sponge counts / sharp counts were appropriate.
A pressure dressing was applied.
Procedure End:
The procedure was tolerated well. Aquacel bandaged was applied. A pressure dressing was applied.
Estimated Blood loss:
5 cc
Specimens Removed:
No cultures and no specimens were obtained. No intraoperative pathology was identified.
Urine output:
None
Packs / Drains/ Tubes:
None
Instrument / Sponge Count Correct:
Yes
Flouro time:
28.7min / DAP 23.4 Gycm2
Complications of the Procedure:
None
Condition of Patient at Time of Transfer:
Hemodynamically stable with no neurological or vascular compromise.
Device information:�
Generator: Shopparity; Model: [id number]; Serial # [id number]�
Atrial Lead: Shopparity; Model: 5076-52; Serial # [id number]
Measured data in the right atrium was sensing of 2.1 mV, impedance of 680 Ohms and threshold of 1.6V at 0.5ms�
RV Lead: Medtronic; Model: 6935M-62; Serial # [id number]
Measured data on the RV lead was sensing of 8 mV, impedance of 780 ohms and threshold of 0.75V at 0.4ms�
LV pacing lead: Medtronic; Model: 4798-88; Serial # [id number]
Measured data on the LV lead was impedance of 700 ohms and threshold of 0.5 V at 0.4ms (LV2 to LV3; diaphragm not seen at max output).
PROGRAMMING PARAMETERS:�
Zachery parameter settings were DDD 50-130 �(due to AF)
Paced AV interval: 130ms
Sensed AV interval: 100 ms.
Rate Adaptive A-V Interval: on
Tachy parameter settings:
SVT discrimination: On
AF/AFl: Off
SVT limit: 260 msec
VT zone:
Slow VT: 150 -188bpm --> Monitor
Fast VT: 188-220 bpm -->ATP then Shock x6 (ATP while charging)
VF: >220 bpm -- > shock x6 (ATP while charging)
Summary:
Successful implantation of MRI compatible Medtronic REGIONAL VICE PRESIDENT SURGICAL SALES-D system.
Results/Recommendations:
-Please follow up CXR�
-Please provide patient with adequate pain control�
Instructions to be given to patient:�
- Please follow up with [facility] at [address] [place] [address] ([phone]) to get your wound checked in 2 weeks of your discharge. Then follow with
- Do not wet incision site until after it is evaluated at cardiology clinic. No baths or showers until then. Sponge baths / showers are OK but dab dry the dressing after it is wet.�
- Allow 'steri strips' to fall off on their own�
- Do not lift left elbow above shoulder, particularly with sudden jerking movements, for 1 month�
- Do not lift anything weighing more than 5 pounds with the left arm for 1 month�
- If you notice any fevers, shortness of breath, lightheadedness, chest pain, or worsening swelling in the wound site, please contact the arrhythmia clinic, contact your base loader, or present to the hospital for evaluation.�
Praminder Hair MD
Electrophysiology
--- NOTE | 2025-08-02 15:08 | PTCARENOTE ---
Received patient from PACU at 1400 after discharge was cancelled. Assisted oob to the chair. Aquacel dressing left upper chest is dry and intact with the arm immobilizer in place. Reinforced post ICD activity restrictions. S.O. at the bedside,
patient eating lunch, SR on the monitor.
[2025-08-02] MEDS: ANCEF 5 IV ×2 (15:17→22:11)
[2025-08-02] MEDS: TYLENOL 650 MG PO (15:20)
--- NOTE | 2025-08-02 15:42 | CM ---
spoke to pt in room, she is pre vindep, lives withher S.O. in a 1 story hosme with 2 step to enter. she denies any dc planning needs or dme's. plan is for dc to home when medically stable.
--- NOTE | 2025-08-02 16:13 | W.DS.TRANS ---
DC Summary - Commercial Fisherman
-
Discharge Instructions:
Discharge Diagnosis/Procedures BiV ICD implant
Diet Low Cholesterol,2 Gram Sodium
Driving Restrictions No driving for 1 week
Bathing Restrictions OK to Shower
Specialty Instructions Weigh Daily
Instructions:
Stand-Alone Forms: DC Inst - Implanted Device
Changes to Home Medications: No
Discharge Medications:
DC Medications w/original date entered in [employer]
ascorbic acid 30 mg-collagen, hydrolyzed 833.3 mg tablet (Collagen Skin Renewal) 1 tab PO DAILY Supplement 06/07/24
cholecalciferol (vitamin D3) 50 mcg (2,000 unit) tablet 50 mcg PO DAILY Supplement 06/07/24
duloxetine 30 mg capsule,delayed release 30 mg PO DAILY Mental Health 06/07/24
lisinopril 10 mg tablet 20 mg PO DAILY Blood Pressure 06/07/24
famotidine 20 mg tablet 20 mg PO DAILY 04/23/25
guar gum 1 tbsp PO DAILY 04/23/25
empagliflozin 10 mg tablet (Jardiance) 10 mg PO DAILY 08/02/25
metoprolol succinate 25 mg tablet,extended release 24 hr 25 mg PO DAILY 08/02/25
rosuvastatin 10 mg tablet 10 mg PO QPM 08/02/25
Home Medication Changes
Pending Results: No
[2025-08-02] MEDS: CRESTOR 10 MG PO (17:53)
--- NOTE | 2025-08-02 18:53 | PTCARENOTE ---
Patient states she is feeling better, does not feel short of breath, pulse ox 96% on RA. Medicated with tylenol for a headache, slightly better but will order coffee since she has not had any caffeine yet today to see if that helps. Family at the
bedside, questions answered.
[2025-08-02] MEDS: PERCOCET 5/325 1 TABLET PO (19:49)
[2025-08-03] MEDS: TYLENOL 650 MG PO (01:26)
[2025-08-03 01:27] VITALS: BMI 28.8
[2025-08-03 01:44] LABS: Hematocrit 36.2 % (37.0-47.0); Hemoglobin 12.1 g/dL (12.0-16.0); Mean Corp Hgb Conc. 33.4 g/dL (33.0-37.0); Mean Corpuscular Volume 91.2 fL (81.0-99.0); Platelet Count 224 10^3/uL (130-400); Red Cell Dist. Width 12.1 % (11.5-14.5)
[2025-08-03 02:12] LABS: Blood Urea Nitrogen 13 mg/dl (7-17); Calcium 9.5 mg/dl (8.4-10.2); Carbon Dioxide 25 mmol/L (22-30); Chloride 109 mmol/L (98-107); Estimated Creatinine Clearance 95 ml/min; Glucose 119 mg/dl (70-99); Magnesium 2.2 mg/dl (1.6-2.3); Potassium 4.4 mmol/L (3.5-5.1); Sodium 137 mmol/L (135-145); eGFR > 60.00
--- NOTE | 2025-08-03 02:52 | PTCARENOTE ---
Assumed care on pt at 1900. aaox3, denies pain from Left chest wall incision, c/o SIMS 02/23, pain med given with some relief. SR with BBB/ Vpaced on tele monitor, HR 60's. Aquacell to LCW dry and intact, free of swelling or bruising, immobilizer to
left arm on. Pt updated on POC and in agreement, Call more within reach.
[2025-08-03 05:29] VITALS: BP 113/78
[2025-08-03 07:38] VITALS: BP 98/66
--- NOTE | 2025-08-03 07:59 | W.PN.CD ---
Addendum entered and electronically signed by Tani Dyson MD 08/03/25 08:48:
I saw and examined the patient.
The CATTLE MANAGER's note was reviewed and I agree with the note.
Comment: 59 yo female with NICM EF 35%, LBBB admitted s/p BiV ICD. No cardiac complaints. Exam with RRR, no murmurs, no edema. Tele: SR with intermittent V pacing. Plan for discharge today. Continue Toprol XL.
Original Note:
Today's Communication / Plan
-
Home today with follow-up in our office arranged
Impression / Plan
-
NICM EF 35%, LBBB:
-s/p BI-V ICD (Medtronic), Dr. Hair 08/02/25
-site looks good no hematoma. We reviewed activity restrictions and site care. She is scheduled for incision check in our office.
-continue GDMT as tolerated
Physical Exam
Vital Signs/Labs
Vital Signs
Temp Pulse Resp BP Pulse Ox
98.1 F 64 18 113/78 98
08/03/25 07:36 08/03/25 06:30 08/03/25 07:36 08/03/25 05:29 08/03/25 07:36
08/02/25 08/03/25 08/04/25
06:59 06:59 06:59
Actual Weight 73.6 kg
08/03/25 01:36
08/03/25 01:36
Magnesium 2.2 mg/dl (1.6-2.3) 08/03/25 01:36
Physical Exam
Constitutional: No acute distress
EENT: Anicteric
Cardiovascular: Rhythm & rate is regular
Respiratory: Respiratory effort normal and Lungs clear to auscul.
Neuro/Psych: AO x 3
Other: Cardiac Device Site (left chest site aquacell intact)
Data Reviewed
-
Date of Service: August 03, 2025
EKG: Tracing Personally Visualized and interpreted ( MAIL SORTER AND DELIVERY) and Other (SR)
Labs: Labs Reviewed by me
[2025-08-03 08:38] VITALS: BP 124/86
[2025-08-03] MEDS: FARXIGA 10 MG PO (08:38)
[2025-08-03] MEDS: ZESTRIL 20 MG PO (08:39)
[2025-08-03] MEDS: TOPROL XL 25 MG PO (08:39)
[2025-08-03] MEDS: CYMBALTA DELAYED RELEASE 30 MG PO (08:39)
[2025-08-03] MEDS: PEPCID 20 MG PO (08:39)
--- NOTE | 2025-08-03 08:44 | W.DS.TRANS ---
DC Summary - Remote Mortgage Underwriter
-
Discharge Instructions:
Discharge Diagnosis/Procedures BiV ICD implant
Diet Low Cholesterol,2 Gram Sodium
Activity Other activity
Additional Activity follow activity restrictions on attached sheet
Driving Restrictions No driving for 1 week
Bathing Restrictions OK to Shower
Specialty Instructions Weigh Daily
Instructions:
Stand-Alone Forms: DC Inst - Implanted Device
Changes to Home Medications: No
Discharge Medications:
DC Medications w/original date entered in [email or web address]
ascorbic acid 30 mg-collagen, hydrolyzed 833.3 mg tablet (Collagen Skin Renewal) 1 tab PO DAILY Supplement 06/07/24
cholecalciferol (vitamin D3) 50 mcg (2,000 unit) tablet 50 mcg PO DAILY Supplement 06/07/24
duloxetine 30 mg capsule,delayed release 30 mg PO DAILY Mental Health 06/07/24
lisinopril 10 mg tablet 20 mg PO DAILY Blood Pressure 06/07/24
famotidine 20 mg tablet 20 mg PO DAILY 04/23/25
guar gum 1 tbsp PO DAILY 04/23/25
empagliflozin 10 mg tablet (Jardiance) 10 mg PO DAILY 08/02/25
metoprolol succinate 25 mg tablet,extended release 24 hr 25 mg PO DAILY 08/02/25
rosuvastatin 10 mg tablet 10 mg PO QPM 08/02/25
Home Medication Changes
Pending Results: No
--- NOTE | 2025-08-03 11:00 | PTCARENOTE ---
~[id number]: Handoff report received from nightshift RN. Pt AOx4, V paced 50s-60s on tele, SBP 120s, RA satting 98%. Pt does not c/o pain at this time. L upper chest dressing CDI. Independent in room. Limb immobilizer to go home with patient per
cardiology recommendations. All needs met at this time, call more within reach.
~[id number]: DC orders in. Tele box and PIV removed from patient. VSS. DC paperwork reviewed with patient, all questions answered. Pt dc'd in stable condition to home and left with all belongings.
== END 2025-08-03 11:00 | disposition home or self-care (01) ==
LOC: CATH 05:51
PROVIDERS: Nurse Practitioner Adult Health; ATTENDING PHYSICIAN Internal Medicine Cardiovascular Disease; FAMILY PHYSICIAN Physician Assistant Medical; OTHER PHYSICIAN Internal Medicine
DX: I50.22 Chronic systolic (congestive) heart failure (principal); Z79.899 Other long term (current) drug therapy; I44.7 Left bundle-branch block, unspecified; I42.6 Alcoholic cardiomyopathy; I11.0 Hypertensive heart disease with heart failure; Z87.891 Personal history of nicotine dependence; F32.A Depression, unspecified; F41.9 Anxiety disorder, unspecified; R73.03 Prediabetes; E66.9 Obesity, unspecified; Z79.84 Long term (current) use of oral hypoglycemic drugs
CPT/HCPCS: 33249; 33225; 36415; 71045; 80048; 80053; 82962; 83735; 85025; 85027; 93005; C1769; C1777; C1882; C1887; C1892; C1898; C1900; Q9967